=== PATIENT | female | born 1975 | race Caucasian/White ===

== ENCOUNTER 2021-03-05 02:32 | Outpatient (CLI) | payer BC, SELFPAY ==
[2021-03-05 10:03] LABS: HCT 44.8 % (36.0-46.0); HGB 15.6 g/dL (11.2-15.7); MCH 30.5 pg (27.0-33.0); MCHC 34.8 % (32.0-36.0); MCV 87.5 fL (80-95); MPV 11.4 fL (8.0-11.0); Platelet Count 240 10^3/uL (130-400); RBC 5.12 10^6/uL (3.93-5.22); RDW 12.7 % (11.7-14.6); RDW-SD 40.6 fL; WBC 6.82 10^3/uL (4.4-10.8)
[2021-03-05 10:22] LABS: Hemoglobin A1C 11.5 % (<5.7)
[2021-03-05 11:16] LABS: ALT 47 U/L (14-59); AST 24 U/L (15-37); Alkaline Phosphatase 153 U/L (46-116); Anion Gap 7.8 mmol/L (3-11); BUN 11 mg/dL (7-18); Bilirubin, Total 0.6 mg/dL (0.2-1.0); CO2 28.2 mmol/L (21.0-32.0); Calcium 9.2 mg/dL (8.5-10.1); Calculated LDL 164 mg/dL (<100); Chloride 101 mmol/L (98-107); Cholesterol 236 mg/dL (<200); Estimated GFR 59.43 (mL/min/1.73m2); Glucose 277 mg/dL (74-106); HDL Cholesterol 42 mg/dL (40-60); Potassium 4.6 mmol/L (3.5-5.1); Sodium 137 mmol/L (136-145); TSH (W/Ref FT4) 0.94 uIU/mL (0.36-3.74); Total Protein 7.3 g/dL (6.4-8.2); Triglyceride 153 mg/dL (<150)
[2021-03-08 09:24] LABS: Hepatitis C Ab w Rflx HCV PCR Negative (Negative)
[2021-03-08 09:42] LABS: HIV-1/2 Ag & Ab Screen Negative (Negative)
== END 2021-03-05 02:33 | disposition home or self-care (01) ==
LOC: LBO 02:32
PROVIDERS: PCP Nurse Practitioner Adult Health; Visit Provider Nurse Practitioner Adult Health
DX: N92.0 Excessive and frequent menstruation with regular cycle (principal); R73.03 Prediabetes; E66.01 Morbid (severe) obesity due to excess calories; Z11.4 Encounter for screening for human immunodeficiency virus [HIV]; Z11.59 Encounter for screening for other viral diseases
CPT/HCPCS: 36415; 80053; 80061; 85027; 86803; 87389; 83036; 84443

== ENCOUNTER 2021-03-05 12:02 | Outpatient (REF) | payer BC, SELFPAY ==
--- NOTE | 2021-03-05 11:00 | PAPFT_PTH ---
PATIENT: Avis King LOC: N U#:[id number] AGE/SX: 45/F ROOM: RE03/05/[address]: Dilcia Hollis APRN : 1975 BED: DIS: 03/05/2021 SPEC #: [id number] RECD: 03/05/21 16:31 STATUS: NIKHIL REGoyo #: [id number] VALERIA: 03/05/21 11:[address]: Dilcia Hollis DEPT: [facility] Cytology RECD BY: Janna Cantrell Tissues: 1 - CX/ENDOCX FOR PAP SMEARS Procedures: PAP THIN PREP/UVM Screening HPV DNA PROBE Comments: [id number]
== END 2021-03-05 12:03 | disposition home or self-care (01) ==
LOC: LBN 12:02
PROVIDERS: PCP Nurse Practitioner Adult Health; Visit Provider Nurse Practitioner Adult Health
DX: Z12.4 Encounter for screening for malignant neoplasm of cervix (principal); Z11.51 Encounter for screening for human papillomavirus (HPV)
CPT/HCPCS: 88142; 87624

== ENCOUNTER 2021-03-16 14:10 | Outpatient (REF) | payer BC, SELFPAY ==
[2021-03-18 13:16] LABS: COVID-19 RT-PCR UVMMC Result Negative (Negative)
== END 2021-03-16 14:11 | disposition home or self-care (01) ==
LOC: LBN 14:10
PROVIDERS: PCP Nurse Practitioner Adult Health
DX: Z20.822 Contact with and (suspected) exposure to COVID-19 (principal); J02.9 Acute pharyngitis, unspecified
CPT/HCPCS: U0003

== ENCOUNTER 2021-03-22 02:17 | Outpatient (CLI) | payer BC, SELFPAY ==
--- NOTE | 2021-03-22 15:02 | DI.MAMMO_ITS ---
Exam(s) MAMMO SCREENING EXAM: MAMMO SCREENING CLINICAL HISTORY: screening,Z12.39 TECHNIQUE: Mammograms were interpreted according to the usual protocol including computer analysis w [employer] CAD system, tomosynthesis and C-view imaging. COMPARISON: [facility] MAMMO KENN SCREENING BILAT-M2 from 06/16/2016 16 June 2016 from [facility] FINDINGS: The breasts are composed of scattered fibroglandular densities, Breast Density category B. No suspicious masses or suspicious microcalcifications are seen. No skin thickening or abnormal axillary lymph nodes are seen. There has been no significant change from prior exams. IMPRESSION: BI-RADS Category 1, Negative mammogram Yearly screening mammography is recommended. Breast Density - Category B, scattered fibroglandular densities. A negative radiographic report should not delay biopsy if a dominant or clinically suspicious mass is present. Up to ten percent of cancers are not identified on mammography. A negative report may reinforce clinical impression. Adenosis and dense breasts may obscure an underlying neoplasm. False positive reports average 6 to 10%. Patient will receive a letter notifying them of these results.
== END 2021-03-22 02:37 ==
PROVIDERS: PCP Nurse Practitioner Adult Health; Visit Provider Nurse Practitioner Adult Health
DX: Z12.31 Encounter for screening mammogram for malignant neoplasm of breast (principal)
CPT/HCPCS: 77063; 77067

== ENCOUNTER 2021-04-27 04:18 | Outpatient (CLI) | payer BC, SELFPAY ==
--- NOTE | 2021-04-27 11:00 | NS.NUTBLAN_ITS ---
Avis was referred to Diabetes [facility]. 46 years old, newly diagnosed with Dm 2 with A1C of 11.5% (03/05/21). Wt: 230 lbs, down from 265 lbs, 90 days ago. Goal weight 210 lbs. Avis reports that she does not take any DM meds, checks her glucose once daily. She is not interested in a continuous glucose monitor at this time. Food recall indicates that Avis has changed her diet- she consumes 30-50 g carbs daily and has increased her vegetable and protein intake. She also walks 30 minutes , 5 x weekly. She is determined to resolve her DM2. Session today focused on need to test blood sugars at least three times daily and encouraged her to liberalize her diet to include upto 80-100 g carbs daily. Reviewed with her that overly restrictive diets often are not sustainable. Encouraged her to take DM meds as prescribed. Awaiting updated A1C in May 2021. Overall, Avis is doing very well with her life style choices and I expect she will continue to lose weight if she is able to continue current meal plans and exercise. No follow up planned at this time, encouraged her to reach out if A1C > 7% at next blood draw.
== END 2021-04-27 04:19 | disposition home or self-care (01) ==
PROVIDERS: PCP Nurse Practitioner Adult Health; Visit Provider Dietitian, Registered
DX: E11.9 Type 2 diabetes mellitus without complications (principal); Z71.3 Dietary counseling and surveillance
CPT/HCPCS: 97802

== ENCOUNTER 2021-05-10 12:00 | Outpatient (REF) | payer BC, SELFPAY ==
--- NOTE | 2021-05-10 10:00 | ENDOMET_PTH ---
PATIENT: Avis King LOC: [facility] U#:[id number] AGE/SX: 46/F ROOM: RE05/10/[address]: Tamika Young DO : 1975 BED: DIS: 05/10/2021 SPEC #: [id number] RECD: 05/10/21 12:40 STATUS: NIKHIL REQ #: [id number] VALERIA: 05/10/21 10:[address]: Tamika Young DEPT: Surgical Specimen RECD BY: Janna Cantrell ENTERED: 05/10/21 12:41 SP TYPE: Endomet OTHR DR: Dilcia Hollis APRN Tissues: 1 - ENDOMETRIUM BX/CEDRIC Procedures: GROSS AND MICRO LEVEL 4 Comments: [id number]
== END 2021-05-10 12:01 | disposition home or self-care (01) ==
LOC: LBN 12:00
PROVIDERS: PCP Nurse Practitioner Adult Health; Visit Provider Obstetrics & Gynecology
DX: N84.1 Polyp of cervix uteri (principal); N85.01 Benign endometrial hyperplasia; N93.8 Other specified abnormal uterine and vaginal bleeding
CPT/HCPCS: 88305

== ENCOUNTER 2021-05-20 03:09 | Outpatient (CLI) | payer BC, SELFPAY ==
[2021-05-20 09:33] LABS: Hemoglobin A1C 6.7 % (<5.7)
[2021-05-20 09:49] LABS: ALT 34 U/L (14-59); AST 17 U/L (15-37); Albumin 4.2 g/dL (3.4-5.0); Alkaline Phosphatase 109 U/L (46-116); Anion Gap 9.3 mmol/L (3-11); BUN 17 mg/dL (7-18); Bilirubin, Total 0.6 mg/dL (0.2-1.0); CO2 26.7 mmol/L (21.0-32.0); CREATININE 1.1 mg/dL (0.55-1.02); Calcium 9.1 mg/dL (8.5-10.1); Calculated LDL 146 mg/dL (<100); Chloride 103 mmol/L (98-107); Cholesterol 214 mg/dL (<200); Estimated GFR 53.01 (mL/min/1.73m2); Glucose 121 mg/dL (74-106); HDL Cholesterol 49 mg/dL (40-60); Potassium 4.6 mmol/L (3.5-5.1); Sodium 139 mmol/L (136-145); Total Protein 7.5 g/dL (6.4-8.2); Triglyceride 97 mg/dL (<150)
[2021-05-20 10:48] LABS: COMMENT (LAB VIEW ONLY) 158.73 mg/dL; Microalb ug/mg Crea 5.9 ug/mg Cr
== END 2021-05-20 03:10 | disposition home or self-care (01) ==
LOC: LBO 03:09
PROVIDERS: PCP Nurse Practitioner Adult Health; Visit Provider Nurse Practitioner Adult Health
DX: E11.69 Type 2 diabetes mellitus with other specified complication (principal); E66.9 Obesity, unspecified
CPT/HCPCS: 36415; 80053; 80061; 82043; 82570; 83036

== ENCOUNTER 2021-08-20 01:27 | Outpatient (CLI) | payer BC, SELFPAY ==
[2021-08-20 15:19] LABS: ALT 36 U/L (14-59); AST 15 U/L (15-37); Albumin 4.4 g/dL (3.4-5.0); Alkaline Phosphatase 98 U/L (46-116); Anion Gap 12.3 mmol/L (3-11); BUN 14 mg/dL (7-18); Bilirubin, Total 0.7 mg/dL (0.2-1.0); CO2 26.7 mmol/L (21.0-32.0); CREATININE 0.9 mg/dL (0.55-1.02); Calcium 9.3 mg/dL (8.5-10.1); Calculated LDL 103 mg/dL (<100); Chloride 102 mmol/L (98-107); Cholesterol 156 mg/dL (<200); Glucose 88 mg/dL (74-106); HDL Cholesterol 41 mg/dL (40-60); Potassium 4.1 mmol/L (3.5-5.1); Sodium 141 mmol/L (136-145); Total Protein 7.8 g/dL (6.4-8.2); Triglyceride 61 mg/dL (<150)
== END 2021-08-20 01:28 | disposition home or self-care (01) ==
LOC: LBO 01:27
PROVIDERS: PCP Nurse Practitioner Adult Health; Visit Provider Nurse Practitioner Adult Health
DX: E78.5 Hyperlipidemia, unspecified (principal); E11.69 Type 2 diabetes mellitus with other specified complication; E66.9 Obesity, unspecified
CPT/HCPCS: 36415; 80053; 80061; 83036

== ENCOUNTER 2022-03-11 02:56 | Outpatient (CLI) | payer BC, SELFPAY ==
--- OUTSIDE RECORDS SUMMARY | 2022-03-11 02:57 | XMS_ITS | Encounter Summary ---
:1975 Author Organization [facility] Address [address] [place] [address] Care Team Providers Name Role Phone Unavailable Primary Care Provider Unavailable Encounter Details Date Type Department Care Team Description 08/12/2008 Before PRISM [facility] - Vicente Hart MD Converted Visit Maple conversion [address] ([place]le) [address] [place] [phone] (Wo rk) Social History Tobacco Use Types Packs/Day Years Used Date Never Assessed Sex Assigned at Date Recorded Not on file documented as of this encounter Plan of Treatment Not on filedocumented as of this encounter Procedures Procedure Name Priority Date/Time Associated Diagnosis Comme nts CYTOPATHOLOGY Routine 08/12/2008 0:00 EST Results for this procedure are i n the results section . documented in this encounter Results CYTOPATHOLOGY (08/12/2008 0:00 EST) Pathology Report: CYTOPATHOLOGY REPORT ? BRICE ALL EN ? LAB Reports generated via G2Link interface contain original data; ? however they are lacking the format of the original report. ? Caution should be taken when reading/interpreting unformatted reports. ? Name: ? KWABENA RANDOLPH ? Accession #: ? [id number] ? : ? 1975 (Age: 33) ??F ?Collect Date: ? 08/12/2008 ? Location: ? [facility] ? Receive Date: ? 08/14/2008 ? Provider: ?ALONSO MART MD ? Copy to: ? Specimen/Source: ? Pap Test, Cervix/Endocervix, ThinPrep Imaging System ? with manual evaluation ? Last Menstrual Period: ? 11/30/08 ? Hormonal/Contraceptive Statu s: ? Tubal ligation: 2000 ? Other: ? HPVA - HPV testing requested if ASC-US on the current ThinPrep Pap test. ? SPECIMEN ADEQUACY ? Satisfactory for Eval uation ? - transformation zone compon ent present ? GENERAL CATEGORIZATION ? Negative for Intraepi thelial Lesion or Malignancy ? Document reviewed and electr onically signed by: ? John Nii Mariano , MD ? Report Date: ??12/09/ 2008 10:10 ? End of Report ? Specimen Performing Organization Address City/State/ZIP Code Phon e Number [facility] [address] [place] [address] SERVICES [facility] [address] [place] [address] documented in this encounter Visit Diagnoses Not on filedocumented in this encounter
--- OUTSIDE RECORDS SUMMARY | 2022-03-11 02:57 | XMS_ITS | Clinical Summary ---
:1975 Author Organization [facility] Address [address] [place] [address] Care Team Providers Name Role Phone Olivier Hart MD Primary Care Provider Social History Tobacco Use Types Packs/Day Years Used Date Never Assessed Sex Assigned at Date Recorded Not on file Plan of Treatment Health Maintenance Due Date Last Done Comments COVID-19 Vaccine (1) 1978 Hepatitis C Screen Completed 03/05/2021 Insurance Payer Benefit Plan / Subscriber ID Effective Phone Address T ype Group Dates BS [facility] [id number] 2018-[facility] [phone] [address] [employer] [address] [place] [address] Care Teams Shrimping Boat Captain Relationship Specialty Start Date End Date Olivier Hart MD PCP - General 07/15/15
--- OUTSIDE RECORDS SUMMARY | 2022-03-11 02:57 | XMS_ITS | Encounter Summary ---
:[address] [facility] Address [address] [place] [address] Care Team Providers Name Role Phone Olivier Hart MD Primary Care Provider Encounter Details Date Type Department Care Team Description 05/10/2021 Lab Requisition [facility] Tamika Young Encounter for other Pathology & [address] [place] [address] general examination Laboratory Medicine [facility] [phone] [address] [facility] [phone] [place] [address] (Work) [phone] Social History Tobacco Use Types Packs/Day Years Used Date Never Assessed Sex Assigned at Date Recorded Not on file documented as of this encounter Plan of Treatment Not on filedocumented as of this encounter Procedures Procedure Name Priority Date/Time Associated Diagnosis Comme nts SURGICAL PATHOLOGY Today 05/10/2021 10:00 Encounter for othe r Results for this EDT general examination procedur e are in the results section. documented in this encounter Results SURGICAL PATHOLOGY (05/10/2021 10:00 EDT) Note to Patient The following [facility] pathology results CENTER have been interpreted LABORATORY by your pathologist SERVICES and may be available to you before your health provider has had the opportunity to review them. Please allow time for your provider to receive these results and explore management options, if applicable. Final Diagnosis A. ENDOMETRIUM, BIOPSY: [facility] - Proliferative endometrium with focal disorder. CENTER - Benign endocervical polyp also present. LABORATORY SERVICES Attestation There was significant [facility] Electr onically resident/fellow CENTER signed by J Luis yuan, involvement in the LABORATORY James Elam MD on diagnostic evaluation SERVICES 05/13/20 21 at 0950 of this case. By the signature below, the attending physician certifies that they have personally conducted a gross and/or microscopic examination of the described specimens and rendered or confirmed the above diagnosis. Clinical History Abnormal uterine [facility] LABORATORY SERVICES Gross Description A. [facility] II8 Received in formalin lab elled with proper patient identification (initials S, H) and endometrium bx is an aggregate of pink-red soft tissue fragments admixed with ellis of a mucous (1.7 x 1.3 x 0.7 CENTER cm). The specimen is submitted entirely in A1 and A2. LABORATORY SERVICES VANNA TORIBIO([facility]) 05/10/2021 15:35 Resident/Fellow: Lou Cassidy MD [facility] SERVICES Performing Lab [facility] SERVICES Scanned Images [facility] SERVICES Specimen Tissue - Entire endometrium (body struct ure) Performing Organization Address City/State/ZIP Code Phon e Number [facility] [address] [place] [address] SERVICES documented in this encounter Visit Diagnoses Diagnosis Encounter for other general examination documented in this encounter Care Teams Photoresist Printer Relationship Specialty Start Date End Date Olivier Hart MD PCP - General 07/15/15 documented as of this encounter
--- OUTSIDE RECORDS SUMMARY | 2022-03-11 02:57 | XMS_ITS | Encounter Summary ---
:1975 Author Organization [facility] Address [address] [place] [address] Care Team Providers Name Role Phone Unavailable Primary Care Provider Unavailable Encounter Details Date Type Department Care Team Description 07/18/2013 Results Only [facility] Arabella Haley NP Laboratory Services - [address] [facility],[address] [address] [place] [address] [phone] Social History Tobacco Use Types Packs/Day Years Used Date Never Assessed Sex Assigned at Date Recorded Not on file documented as of this encounter Plan of Treatment Not on filedocumented as of this encounter Procedures Procedure Name Priority Date/Time Associated Diagnosis Comme nts PAP TEST- RESULT Routine 07/18/2013 0:00 EST Resu lts for this ONLY procedure are i n the results section. documented in this encounter Results PAP TEST- RESULT ONLY (07/18/2013 0:00 EST) Pathology Report: CYTOPATHOLOGY REPORT [facility] Reports generated via electronic interface contain jamin ginal data; however they are lacking the format of the original re port. Caution should be taken when reading/interpreting unfo rmatted reports. Name: ? KWABENA RANDOLPH ? Accession #: ? [id number] ? : ? 1975 (Age: 38) ??F ?Collect Da te: ? 07/18/2013 ? Location: ? [facility] ? Receive Date: ? 013 ? Provider: SHAYLA HALEY TELEPHONE STERILIZER Copy to: ? Final Report SPECIMEN ADEQUACY ? Satisfactory for Evaluation - transformation zone component present GENERAL CATEGORIZATION ? Negative for Intraepithelial Lesion or Malignan cy ?? Last Menstrual Period: 07/06/13 Hormonal/Contraceptive status: Tubal ligation: Bilater al Other: Additional clinical information: No abnormal pa ps Specimen/Source: ??Pap Test, Cervix/Endocervix, ThinPr ep Imaging System with manual evaluation Document reviewed and electronically signed by: ? Asiya Shane, TIGRE(ASCP) ? Report ??Date: 07/26/2013 14:08 HPV with Pap Test ? Date Ordered: ? 07/26/2013 ? Status: ?? Signed Out ?Date Complete: ? 07/30/2013 ? By: ??S ystem Interface ? Date Reported: ? 07/30/2013 ? Interpretation RESULT: Negative for HPV. No E6 or E7 mRNA is detected from HPV types 16,18,31,3 3,35, 39,45,51,52,56,58,59,66, and 68 by sign hanger media louise amplification. Comments Document reviewed and electronically signed by: ? System Interface ? Report date: 07/30/2013 By the signature above, the attending physician certif ies that he/she has personally conducted a gross and/or microscopic examin ation of the described specimens and rendered or confirmed the above diagnosi s. End of Report Specimen Performing Organization Address City/State/ZIP Code Phon e Number [facility] [address] [place] [address] SERVICES [facility] [address] [place] [address] documented in this encounter Visit Diagnoses Not on filedocumented in this encounter
--- OUTSIDE RECORDS SUMMARY | 2022-03-11 02:57 | XMS_ITS | Encounter Summary ---
:1975 Author Organization [facility] Address [address] [place] [address] Care Team Providers Name Role Phone Unavailable Primary Care Provider Unavailable Encounter Details Date Type Department Care Team Description 07/30/1999 Hospital Encounter [facility] - Poncho Diop MD [address] [phone] Other Unknown, Provider, [address] [place] [address] Social History Tobacco Use Types Packs/Day Years Used Date Never Assessed Sex Assigned at Date Recorded Not on file documented as of this encounter Discharge Disposition Disposition Code Departure Means Destination Auto Discharge documented in this encounter Plan of Treatment Not on filedocumented as of this encounter Visit Diagnoses Not on filedocumented in this encounter
--- OUTSIDE RECORDS SUMMARY | 2022-03-11 02:57 | XMS_ITS | Encounter Summary ---
:[address] [facility] Address [address] [place] [address] Care Team Providers Name Role Phone Olivier Hart MD Primary Care Provider Encounter Details Date Type Department Care Team Description 03/05/2021 Lab Requisition [facility] Outr Resulting Lab, Pathology & Laboratory Provider [facility] [address] [place] [address] Social History Tobacco Use Types Packs/Day Years Used Date Never Assessed Sex Assigned at Date Recorded Not on file documented as of this encounter Plan of Treatment Not on filedocumented as of this encounter Procedures Procedure Name Priority Date/Time Associated Diagnosis Comme nts HEPATITIS C AB W Routine 03/05/2021 9:47 EDT Resu lts for this REFLEX TO HCV RNA procedure are in BY PCR the results section. documented in this encounter Results HEPATITIS C AB W REFLEX TO HCV RNA BY PCR (03/05/2021 9:47 EDT) Pathologist Sig nature Hep C Antibody Negative Negative [facility] SERVICES Specimen Blood - Venous blood (substance) Performing Organization Address City/State/ZIP Code Phon e Number [facility] [address] [place] [address] SERVICES documented in this encounter Visit Diagnoses Not on filedocumented in this encounter Care Teams Air Pollution Control Engineer Relationship Specialty Start Date End Date Olivier Hart MD PCP - General 07/15/15 documented as of this encounter
--- OUTSIDE RECORDS SUMMARY | 2022-03-11 02:57 | XMS_ITS | Encounter Summary ---
:1975 Author Organization [facility] Address [address] [place] [address] Care Team Providers Name Role Phone Olivier Hart MD Primary Care Provider Encounter Details Date Type Department Care Team Description 03/17/2021 Lab Requisition [facility] Outr Resulting Lab, Pathology & Laboratory Provider [facility] [address] [place] [address] Social History Tobacco Use Types Packs/Day Years Used Date Never Assessed Sex Assigned at Date Recorded Not on file documented as of this encounter Plan of Treatment Not on filedocumented as of this encounter Procedures Procedure Name Priority Date/Time Associated Diagnosis Comme nts [facility] Today 03/16/2021 13:36 LAB PCR EDT COVID-19 TESTING Routine 03/16/2021 13:36 Results for this EDT procedure are i n the results section. documented in this encounter Results COVID-19 TEST [facility] PCR (03/16/2021 13:36 EDT) Specimen Swab - Entire nasopharynx (body structur e) Performing Organization Address City/State/ZIP Code Phon e Number [facility] [address] [place] [address] SERVICES COVID-19 TESTING (03/16/2021 13:36 EDT) COVID-19 rt-PCR Negative Negative [facility] Result Comment: CENTER LABORATORY This test has not been FDA c leared or approved. This test has been authorized by FDA under an EUA for use by authorized laboratories. This test has been authorized only for detection of nucleic acid fro SERVICES m 2019-nCoV, not for any oth er viruses or pathogens. This test is only authorized for the duration of the declaration that circumstances exist justifying the authorization of emergency use of in vitro d iagnostic tests for detectio n and/or diagnosis of 2019-nCoV under section 564(b)(1) of Act, 21 U.S.C ?? 360bbb-3(b) (1), unless the authorization is terminated or revoked sooner. Negative results do not prec lude 2019-nCoV infection and should not be used as the sole basis for treatment or other patient management decisions. Negative results must be combined with clinical observa tions, patient history, and epidemiological informatio n. Testing was performed using the rm SARS-CoV-2 assay ([employer] on the Rm 6800 System Performing Lab Rm 6800 [facility] Lab [facility] SERVICES Specimen Swab Performing Organization Address City/State/ZIP Code Phon e Number [facility] [address] [place] [address] SERVICES documented in this encounter Visit Diagnoses Not on filedocumented in this encounter Care Teams Rural Service Engineer Relationship Specialty Start Date End Date Olivier Hart MD PCP - General 07/15/15 documented as of this encounter
--- OUTSIDE RECORDS SUMMARY | 2022-03-11 02:57 | XMS_ITS | Encounter Summary ---
:1975 Author Organization [facility] Address [address] [place] [address] Care Team Providers Name Role Phone Unavailable Primary Care Provider Unavailable Encounter Details Date Type Department Care Team Description 02/21/2000 Results Only [facility] - Lorene Garcia MD conversion [address] [facility] [address] [place] [phone] (Wo rk) Social History Tobacco Use Types Packs/Day Years Used Date Never Assessed Sex Assigned at Date Recorded Not on file documented as of this encounter Plan of Treatment Not on filedocumented as of this encounter Procedures Procedure Name Priority Date/Time Associated Diagnosis Comme nts CYTOPATHOLOGY Routine 02/21/2000 0:00 EDT Results for this procedure are i n the results section . documented in this encounter Results CYTOPATHOLOGY (02/21/2000 0:00 EDT) Pathology Report: CYTOPATHOLOGY REPORT [facility] Reports generated via electronic interface contain jamin ginal data; however they are lacking the format of the original re port. Caution should be taken when reading/interpreting unfo rmatted reports. Name: ? KWABENA RANDOLPH ? Accession #: ? [id number] : ? 1975 (Age: 24) ??F ?Collect Date: ? 02/09 Location: ? [facility] ? Receive Date : ? 02/23/2000 Provider: ?LORENE MCCORD MD Copy to: ? Specimen/Source: ?Conventional Pap Test, Cer vix/Endocervix Last Menstrual Period: ? 04/04/00 Menstrual/ Status: ? Post ? SPECIMEN ADEQUACY ? Satisfactory for evaluation. GENERAL CATEGORIZATION ? Within Normal Limits ? Document reviewed and electronically signed by: ? Ricarda Maradiaga, SCT(ASCP) ? Report Date: ??02/23/2000 11:21 End of Report Specimen Performing Organization Address City/State/ZIP Code Phon e Number [facility] [address] [place] [address] SERVICES [facility] [address] [place] [address] documented in this encounter Visit Diagnoses Not on filedocumented in this encounter
--- OUTSIDE RECORDS SUMMARY | 2022-03-11 02:57 | XMS_ITS | Encounter Summary ---
:1975 Author Organization [facility] Address [address] [place] [address] Care Team Providers Name Role Phone Olivier Hart MD Primary Care Provider Encounter Details Date Type Department Care Team Description 03/08/2021 Lab Requisition [facility] Dilcia Hollis En counter for screening for malignant neoplasm of cervix; Pathology & L, DIGITAL PRINT OPERATOR Encounter for screening for human papill omavirus (HPV) Laboratory Medicine [address] [place] [address] [phone] Social History Tobacco Use Types Packs/Day Years Used Date Never Assessed Sex Assigned at Date Recorded Not on file documented as of this encounter Plan of Treatment Not on filedocumented as of this encounter Procedures Procedure Name Priority Date/Time Associated Diagnosis Comme nts PAP TEST Today 03/05/2021 11:00 Encounter for Results fo r this EDT screening for procedure are in malignant neoplasm of the re sults cervix section. Encounter for screening for human papillomavirus (HPV) HUMAN PAPILLOMAVIRUS Today 03/05/2021 11:00 Encounter for Re sults for this (HPV) DETECTION-HIGH EDT screening for proced ure are in RISK TYPES malignant neoplasm of the re sults cervix section. Encounter for screening for human papillomavirus (HPV) documented in this encounter Results HUMAN PAPILLOMAVIRUS (HPV) DETECTION-HIGH RISK TYPES (03/05/2021 11:00 EDT) Human Papillomavirus NegativeComment: No Negative [facility] (HPV) Detection-High E6 or E7 mRNA is CENTER LABORATOR Y Types detected from HPV SERVICES types 16,18,31,33,35,39,45 ,51,52,56,58,59,66, and 68 by research librarian mediated amplification. Specimen Pap Test - Cervix and/or Endocervix Performing Organization Address City/State/ZIP Code Phon e Number [facility] [address] [place] [address] SERVICES PAP TEST (03/05/2021 11:00 EDT) Specimens A. Cervix and/or [facility] Endocervix , ThinPrep CENTER Imaging System with LABORATORY Manual Evaluation SERVICES Specimen Adequacy Satisfactory for [facility] Evaluation - CENTER transformation zone LABORATORY component present SERVICES General Negative for [facility] intraepithelial CENTER lesion or malignancy LABORATORY SERVICES Attestation . [facility] Electronically CENTER signed by SERGIO Shane CT(ASCP) on SERVICES 03/18/2021 at 154 0 Clinical History See below [facility] SERVICES HPV The result for the Human Pap illomavirus (HPV) Detection-High Risk Types is Negative. No E6 or E7 mRNA is detected from HPV types 16,18,31,33,35,39,45,51,52,56,58,59,66, and 68 by research librarian mediated [facility] amplification.Testing was pe rformed on specimen [id number] and was resulted on 03/18/2021 1537 EDT by JUAN CARLOS, LAB INSTRUMENT RESULTS IN [facility] SERVICES Performing Lab [facility] SERVICES Scanned Images [facility] SERVICES Specimen Pap Test - Cervix and/or Endocervix Performing Organization Address City/State/ZIP Code Phon e Number [facility] [address] [place] [address] SERVICES documented in this encounter Visit Diagnoses Diagnosis Encounter for screening for malignant ne oplasm of cervix Screening for malignant neoplasm of the cervix Encounter for screening for human papill omavirus (HPV) Special screening examination for human papillomavirus (HPV) documented in this encounter Care Teams Form Tamper Relationship Specialty Start Date End Date Olivier Hart MD PCP - General 07/15/15 documented as of this encounter
== END 2022-03-11 02:57 | disposition home or self-care (01) ==
LOC: LBO 02:56
PROVIDERS: PCP Nurse Practitioner Adult Health; Visit Provider Nurse Practitioner Adult Health

== ENCOUNTER → 2022-04-08 00:43 | Outpatient (CLI) | payer BC, SELFPAY ==
--- NOTE | 2022-04-08 08:30 | DI.MAMMO_ITS ---
Exam(s) MAMMO SCREENING EXAM: MAMMO SCREENING CLINICAL HISTORY: screening, Z12.39 TECHNIQUE: Bilateral full field digital CC and MLO mammographic images were obtained with 3D tomosyn thesis and utilizing computer aided detection (CAD). COMPARISON: Available for comparison. FINDINGS: Masses/Architectural Distortion: None seen. Microcalcifications: No suspicious pleomorphic-type are seen. Skin Thickening/Nipple Retraction: None. IMPRESSION: 1. No significant interval change with no specific features of malignancy noted. 2. Unless there is more urgent need, screening mammography is recommended, as per [place] [employer] guidelines. BI-RADS Category 1 - Negative Breast Density - Category B - Scattered areas of fibroglandular density Breast density category C or D implies that the patient has dense breast tissue. Dense breast tissue is very common and is not abnormal but dense breast tissue can make it harder to find cancer on a ma mmogram. Also, dense breast tissue may increase their breast cancer risk. This information about the result of the mammogram report was provided to the patient to raise their awareness. Use this report when you speak with the patient about their risks for breast cancer, which includes their family hist ory. At that time, you may recommend for more screening tests (Ultrasound or MRI) as they might be us eful based on their risk. A negative radiographic report should not delay biopsy if a dominant or clinically suspicious mass is present. Up to ten percent of cancers are not identified on mammography. A negative report may reinforce clinical impression. Adenosis and dense breasts may obscure an underlying neoplasm. False positive reports average 6 to 10%. Patient will receive a letter notifying them of these results.
== END ==
PROVIDERS: PCP Nurse Practitioner Adult Health; Visit Provider Nurse Practitioner Adult Health
DX: Z12.31 Encounter for screening mammogram for malignant neoplasm of breast (principal); R92.8 Other abnormal and inconclusive findings on diagnostic imaging of breast
CPT/HCPCS: 77063; 77067

== ENCOUNTER 2022-05-24 11:59 | Outpatient (REF) | payer BC, SELFPAY ==
--- NOTE | 2022-05-24 11:20 | ENDOMET_PTH ---
PATIENT: Avis King LOC: [facility] U#:[id number] AGE/SX: 47/F ROOM: RE05/24/[address]: Tamika Young DO : 1975 BED: DIS: 05/24/2022 SPEC #: [id number] RECD: 05/24/22 13:06 STATUS: NIKHIL RE #: [id number] VALERIA: 05/24/22 11:[address]: Tamika Young DEPT: Surgical Specimen RECD BY: Janna Cantrell ENTERED: 05/24/22 13:07 SP TYPE: Endomet OTHR DR: Dilcia Hollis APRN Tissues: 1 - ENDOMETRIUM BX/CEDRIC Procedures: GROSS AND MICRO LEVEL 4 Comments: [id number]
== END 2022-05-24 12:00 | disposition home or self-care (01) ==
LOC: LBN 11:59
PROVIDERS: PCP Nurse Practitioner Adult Health; Visit Provider Obstetrics & Gynecology
DX: N93.9 Abnormal uterine and vaginal bleeding, unspecified (principal)
CPT/HCPCS: 88305

== ENCOUNTER 2022-06-20 03:03 | Outpatient (CLI) | payer BC, SELFPAY ==
[2022-06-20 12:23] LABS: Abs Immature Grans 0.02 10^3/uL (0.0-0.06); Absolute Basophil Count 0.05 10^3/uL (0.0-0.2); Absolute Eosinophil Count 0.16 10^3/uL (0.0-0.7); Absolute Lymphocyte Count 2.63 10^3/uL (1.2-3.4); Absolute Neutrophil Count 4.72 10^3/uL (1.2-6.7); Basophils % 0.6; HCT 45.8 % (36.0-46.0); Immature Grans % 0.2; Lymphocytes % 32.5; MCH 30.8 pg (27.0-33.0); MCHC 34.9 % (32.0-36.0); MCV 88 fL (80-95); MPV 10.8 fL (8.0-11.0); Monocytes % 6.2; Neutrophils % 58.5; Platelet Count 247 10^3/uL (130-400); RDW 13.1 % (11.7-14.6); RDW-SD 42.6 fL; WBC 8.08 10^3/uL (4.4-10.8)
[2022-06-20 12:59] LABS: Anion Gap 7.5 mmol/L (3-11); CO2 27.5 mmol/L (21.0-32.0); Chloride 103 mmol/L (98-107); Glucose 162 mg/dL (74-106); Sodium 138 mmol/L (136-145)
== END 2022-06-20 03:04 | disposition home or self-care (01) ==
LOC: LBO 03:03
PROVIDERS: PCP Nurse Practitioner Adult Health; Visit Provider Obstetrics & Gynecology
DX: N93.8 Other specified abnormal uterine and vaginal bleeding (principal); D25.9 Leiomyoma of uterus, unspecified; Z01.818 Encounter for other preprocedural examination; Z01.812 Encounter for preprocedural laboratory examination; E11.69 Type 2 diabetes mellitus with other specified complication; E66.01 Morbid (severe) obesity due to excess calories
CPT/HCPCS: 36415; 80051; 82947; 86850; 86900; 86901; 85025

== ENCOUNTER 2022-06-22 06:08 | Day surgery (SDC) | payer BC, SELFPAY ==
[2022-06-22] VITALS (8 sets, daily range): BP systolic 117–131; BP diastolic 67–97; PULSE 67–78; RESP 12–18; TEMP 36.4–36.6; O2SAT 97–100; BMI 35.7
[2022-06-22] MEDS: Lactated Ringers 1,000 ML 125 ML IV (06:41)
--- NOTE | 2022-06-22 07:03 | W.ANESPRE ---
General Info Date of Service Date Performed: 06/22/22 Height: 5 ft 6 in Weight: 100.4 kg Body Mass Index (BMI): 35.7 Surgical Procedure: Operation Date: 06/22/22 07:40 Proposed Procedure Side Surgeon p Dilation & Curettage with Hysteroscopy Tamika Young DO Meds Allergies and Home Medications Allergies Allergy/AdvReac Type Severity Reaction Status Date / Time No Known Allergies Allergy Verified 06/22/22 06:02 Home Medication Medication Instructions Recorded blood sugar diagnostic (Blood #100 ea 03/05/21 Glucose Test strips) blood-glucose meter #1 ea 03/05/21 lancets #100 ea 03/05/21 loratadine 10 mg tablet (Allergy 10 mg PO DAILY PRN allergic 03/11/22 Relief (loratadine)) symptoms #90 tabs norethindrone acetate 5 mg tablet 5 mg PO BID #120 tabs 04/13/22 (Aygestin) atorvastatin 10 mg tablet See Rx Instructions .Route 06/01/22 .COMPLEX #90 tabs Current Visit Medications: Current Medications Generic Name Dose Route Start Last Admin Trade Name Bam PRN Reason Stop Dose Admin Ringer's Solution 1,000 mls @ 125 mls/hr 06/22/22 06:00 06/22/22 06:41 IV 07/21/22 23:59 125 mls/hr INFUSION JODIE Administration IV Miscellaneous Supplies 1 each 06/22/22 06:00 Iv Access IV 07/21/22 23:59 DIRECTED JODIE Sodium Chloride 0 ml 06/22/22 06:00 Normal Saline Flush 10 Ml Syr IV 07/21/22 23:59 PRN PRN Sodium Chloride 0 ml 06/22/22 06:00 Normal Saline 10 Ml Vial IJ 07/21/22 23:59 DIRECTED PRN Sterile Water 0 ml 06/22/22 06:00 Water,Injection,Sterile 10 Ml Vial IJ 07/21/22 23:59 DIRECTED PRN PFSH Active Problems Active Problems: Problem Status Onset Code Preoperative exam for gynecologic surgery Z01.818 Hyperlipidemia ~05/2021 E78.5 Abnormal uterine bleeding ~04/2021 N93.9 Diabetes mellitus type 2 in obese ~03/05/21 E11.69, E66.9 Morbid obesity E66.01 Medical History Medical History Fibroid, uterine (~04/2021) Menorrhagia (~03/2021) Perimenopausal; pelvic U/S 03/2021-->fibroid Prediabetes A1C 6.1% 2015 Surgical History Surgical History H/O tubal ligation (~1999) Tobacco Smoking/Tobacco Use Status: Never Passive smoking exposure: No Second hand exposure: No Alcohol Alcohol Intake: current Alcohol intake frequency: holidays/special occasions only Substance Use Substance use: Never Substance use type: does not use Vital Signs and Lab Results Vital Signs Most Recent Vital Signs in EMR: Most Recent Vital Signs Temp Pulse Resp BP Pulse Ox 36.6 C 78 18 131/88 97 06/22/22 06:15 06/22/22 06:15 06/22/22 06:15 06/22/22 06:15 06/22/22 06:15 Point of Care Results Point of Care Results: POC- Test(urine) Negative 06/22/22 06:36 Lab Results Blood Type / Crossmatch: Patient ABO/Rh O Positive 06/20/22 Antibody Screen NEGATIVE 06/20/22 Complete Blood Count: White Blood Count 8.08 10^3/uL (4.4-10.8) 06/20/22 12:11 Red Blood Count 5.20 10^6/uL (3.93-5.22) 06/20/22 12:11 Hemoglobin 16.0 g/dL (11.2-15.7) H 06/20/22 12:11 Hematocrit 45.8 % (36.0-46.0) 06/20/22 12:11 Platelet Count 247 10^3/uL (130-400) 06/20/22 12:11 Complete Metabolic Panel: Sodium 138 mmol/L (136-145) 06/20/22 12:11 Potassium 4.0 mmol/L (3.5-5.1) 06/20/22 12:11 Chloride 103 mmol/L (98-107) 06/20/22 12:11 Carbon Dioxide 27.5 mmol/L (21.0-32.0) 06/20/22 12:11 Glucose 162 mg/dL (74-106) H 06/20/22 12:11 Liver Function Panel: No Data to Display Coagulation Panel: No Data to Display Cardiac Panel: No Data to Display Arterial Blood Gas: No Data to Display Venous Blood Gas: No Data to Display Pancreas Panel: No Data to Display Thyroid Panel: No Data to Display Infectious Disease: No Data to Display Blood Cultures: No Data to Display Toxicology Panel: No Data to Display Panel: No Data to Display Anesthesia Assessment and Plan Anesthesia History Personal History: No History of Anesthesia Complications Family History: No Family History of Anesthesia Complications Exercise Tolerance Exercise Tolerance: Metabolic Equivalents>4 Pertinent Negatives Pertinent Negatives: No Symptoms of GERD, No Major Cardiovascular Symptoms or Complaints and No Major Pulmonary Symptoms or Complaints Cardiac & Pulmonary Exam Cardiac Exam: Normal S1/S2 Heart Sounds Pulmonary Exam: Clear Bilateral Breath Sounds Implantable Cardiac Device Does patient have a Pacemaker or an ICD?: No Airway Exam Known Difficult Airway: No Mallampati Class: 2 Mouth Opening: Normal (> 3cm) Thyromental Distance: Greater than 3 cm Neck Range of Motion: Full ROM Neck Circumference: Normal Teeth Condition: Normal Dentition ASA Classification ASA Score: ASA 2 Emergency Case?: No NPO Status NPO Status: NPO Clears >2 hours, Solids >8 hours Status Status: Negative HCG Anesthesia Plan Resuscitation Status: Full Code Anesthesia Technique: General Anesthesia Airway Planned: LMA Monitors Used: Standard Monitors
--- NOTE | 2022-06-22 07:56 | ENDO_PTH ---
PATIENT: Avis King LOC: [facility] U#:[id number] AGE/SX: 47/F ROOM: RE06/22/[address]: Tamika Young DO : 1975 BED: DIS: 06/22/2022 SPEC #: [id number] RECD: 06/22/22 12:23 STATUS: NIKHIL RE #: [id number] VALERIA: 06/22/22 07:[address]: Tamika Young DEPT: Surgical Specimen RECD BY: Janna Cantrell ENTERED: 06/22/22 12:24 SP TYPE: Endo OTHR DR: Dilcia Hollis APRN Tissues: 1 - ENDOCERVICAL BX/CURRETTE 2 - ENDOCERVICAL BX/CURRETTE 3 - ENDOMETRIUM BX/CURRETTE 4 - ENDOMETRIUM BX/CURRETTE Procedures: GROSS AND MICRO LEVEL 4 Comments: [id number]
[2022-06-22] MEDS: Silver Nitrate Stick 1 EACH (08:07)
--- NOTE | 2022-06-22 08:24 | W.PM.OP ---
Date of service: 06/22/22 Time of Service: 08:24 Operative Note Operative Note DATE OF PROCEDURE: 06/22/22 PRE-OP DIAGNOSIS: Abnormal uterine bleeding, failed endometrial biopsy POST-OP DIAGNOSIS: same Endocervical polyp. Endometrial polyp PROCEDURE: Hysteroscopy with dilation and curettage, endocervical polypectomy. Endometrial polypectomy. SURGEON: Tamika Young ANESTHESIA TYPE: General LMA/ETT Refer to Anesthesia Record ESTIMATED BLOOD LOSS: 10 PATHOLOGY: other (1. Endocervical polyp 2. Endocervical curetting 3. Endometrial polyp 4. Endometrial curetting) Indications: Persistent, ongoing abnormal uterine bleeding Findings: Uterus that is midline and mobile. Endocervical polyp, removed. Endometrial polyp, removed. Otherwise smooth, regular endocervical and endometrial lining Procedure Description: Patient was taken the operating suite with an IV running after full informed consent was obtained. She was placed in dorsal supine position and general anesthesia administered via LMA. She was then placed in the modified dorsal lithotomy position in [facility] stirrups and prepped and draped in the usual sterile fashion. After timeout was held, speculum inserted into the vaginal vault and the cervical os identified. Single-tooth tenaculum used to grasp the anterior lip of the cervix. There is noted to be an endocervical polyp which was removed with a polyp forcep and sent for pathology. At this point cervical os was dilated to the point that a 5 mm hysteroscope could be passed with ease. With instillation of normal saline and a total deficit of 15 mL, the endometrial cavity was inspected. There was noted to be a mobile endometrial polyp and the remainder of the endometrial cavity was smooth and regular. Hysteroscope portion of the procedure was then terminated. At this point a polyp forcep was used to remove the endometrial polyp from the endometrial canal and lining. And sharp curettage had been previously performed from the endocervix, followed by the endometrium and a fractional procedure. At this point tenaculum was removed. The right tenaculum site was not hemostatic which was cauterized with silver nitrate to achieve hemostasis. At this point the speculum was removed and the patient was returned to the dorsal supine position. She woke from anesthesia with ease and was taken to recovery room in stable condition. EBL: 10 mL Complications: None apparent Findings: Smooth regular endometrial lining. Endocervical polyp. Endometrial polyp. Pathology: 1. Endocervical polyp 2. Endocervical curetting 3. Endometrial polyp 4. Endometrial curetting Fluid deficit: 15 mL normal saline
--- NOTE | 2022-06-22 09:58 | W.ANESPOSTOP ---
Postoperative Evaluation Date, Time and Location Date Performed: 06/22/22 Time Performed: 09:52 Patient Location: Day Surgery Unit Vital Signs Most Recent Imported Vital Signs: Most Recent Vital Signs Temp Pulse Resp BP Pulse Ox 36.4 C L 67 18 131/85 99 06/22/22 09:25 06/22/22 09:25 06/22/22 09:25 06/22/22 09:25 06/22/22 09:25 Pain Score Most Recent Pain Score: Most Recent Pain Score Pain Level 0 06/22/22 09:25 Assessment Mental Status: Awake (Alert & Oriented to Patient Baseline) Airway and Respiratory Function: Patent airway with normal (patient baseline) respiratory exam Cardiovascular Function: Hemodynamically Stable Hydration Status: Adequately Hydrated Nausea & Vomiting: No Nausea or Vomiting Pain: Pt. Denies Any Pain Peripheral Nerve Block: Patient did not receive a nerve block
== END 2022-06-22 10:25 | disposition home or self-care (01) ==
PROVIDERS: PCP Nurse Practitioner Adult Health; Visit Provider Obstetrics & Gynecology
PROC: 0UDB8ZZ Extraction of Endometrium, Via Natural or Artificial Opening Endoscopic (ICD-10-PCS; CPT 58558; principal; 2022-06-22 07:30)
DX: N84.0 Polyp of corpus uteri (principal); N93.9 Abnormal uterine and vaginal bleeding, unspecified; N84.1 Polyp of cervix uteri
CPT/HCPCS: 58558; 81025; 88305; J1100; J1885; J2250; J2405; J3010

== ENCOUNTER 2022-07-01 09:09 | Outpatient (CLI) | payer BC, SELFPAY ==
[2022-07-01 14:08] LABS: HCT 38.4 % (36.0-46.0); HGB 13.2 g/dL (11.2-15.7); MCH 30.9 pg (27.0-33.0); MCHC 34.4 % (32.0-36.0); MCV 90 fL (80-95); MPV 10.9 fL (8.0-11.0); Platelet Count 266 10^3/uL (130-400); RBC 4.27 10^6/uL (3.93-5.22); WBC 10.82 10^3/uL (4.4-10.8)
== END 2022-07-01 09:10 | disposition home or self-care (01) ==
LOC: LBO 09:10
PROVIDERS: PCP Nurse Practitioner Adult Health; Visit Provider Obstetrics & Gynecology
DX: N93.9 Abnormal uterine and vaginal bleeding, unspecified (principal)
CPT/HCPCS: 36415; 85027

== ENCOUNTER 2022-07-11 03:06 | Outpatient (CLI) | payer BC, SELFPAY ==
[2022-07-11 09:26] LABS: Abs Immature Grans 0.03 10^3/uL (0.0-0.06); Absolute Basophil Count 0.07 10^3/uL (0.0-0.2); Absolute Eosinophil Count 0.19 10^3/uL (0.0-0.7); Absolute Monocyte Count 0.56 10^3/uL (0.1-0.8); Absolute Neutrophil Count 5.19 10^3/uL (1.2-6.7); Basophils % 0.8; Eosinophils % 2.2; HCT 36.4 % (36.0-46.0); HGB 12.1 g/dL (11.2-15.7); Immature Grans % 0.4; Lymphocytes % 29.3; MCH 30.6 pg (27.0-33.0); MCHC 33.2 % (32.0-36.0); MCV 92 fL (80-95); MPV 10.5 fL (8.0-11.0); Monocytes % 6.6; Neutrophils % 60.7; Platelet Count 350 10^3/uL (130-400); RBC 3.95 10^6/uL (3.93-5.22); RDW 14.6 % (11.7-14.6); RDW-SD 48.3 fL; WBC 8.54 10^3/uL (4.4-10.8)
[2022-07-11 10:16] LABS: Anion Gap 7.1 mmol/L (3-11); CO2 25.9 mmol/L (21.0-32.0); Chloride 104 mmol/L (98-107); Glucose 155 mg/dL (74-106); Potassium 4.1 mmol/L (3.5-5.1); Sodium 137 mmol/L (136-145)
== END 2022-07-11 03:07 | disposition home or self-care (01) ==
LOC: LBO 03:06
PROVIDERS: PCP Nurse Practitioner Adult Health; Visit Provider Obstetrics & Gynecology
DX: N93.8 Other specified abnormal uterine and vaginal bleeding (principal); D25.9 Leiomyoma of uterus, unspecified; E11.9 Type 2 diabetes mellitus without complications; Z01.818 Encounter for other preprocedural examination; Z01.812 Encounter for preprocedural laboratory examination
CPT/HCPCS: 36415; 80051; 82947; 86850; 86900; 86901; 85025

== ENCOUNTER 2022-07-13 08:51 | Inpatient (IN) | payer BC, SELFPAY ==
[2022-07-13] VITALS (11 sets, daily range): BP systolic 89–163; BP diastolic 43–97; PULSE 67–88; RESP 16–32; TEMP 36.3–37.3; O2SAT 95–100; BMI 37.0
[2022-07-13 09:20] LABS: Source Nasal/Nares
[2022-07-13] MEDS: Lactated Ringers 1,000 ML 125 ML IV ×3 (09:50→22:36)
[2022-07-13 09:51] LABS: COVID-19 PCR Negative (Negative)
--- NOTE | 2022-07-13 10:44 | W.ANESPRE ---
General Info Date of Service Date Performed: 07/13/22 Height: 5 ft 5 in Weight: 100.9 kg Body Mass Index (BMI): 37.0 Surgical Procedure: Operation Date: 07/13/22 10:55 Proposed Procedure Side Surgeon p Hysterectomy Vaginal Laparoscopic Assist, possible Cystoscopy Tamika Young DO s Salpingectomy Laparoscopic Bilateral Tamika Young DO [place] Allergies and Home Medications Allergies Allergy/AdvReac Type Severity Reaction Status Date / Time No Known Allergies Allergy Verified 07/13/22 09:22 Home Medication Medication Instructions Recorded blood sugar diagnostic (Blood #100 ea 03/05/21 Glucose Test strips) blood-glucose meter #1 ea 03/05/21 lancets #100 ea 03/05/21 loratadine 10 mg tablet (Allergy 10 mg PO DAILY PRN allergic 03/11/22 Relief (loratadine)) symptoms #90 tabs atorvastatin 10 mg tablet See Rx Instructions .Route 06/01/22 .COMPLEX #90 tabs ibuprofen 800 mg tablet 800 mg PO Q8H PRN #30 tabs 06/22/22 norethindrone acetate 5 mg tablet 5 mg PO Q4H 07/12/22 (Aygestin) Current Visit Medications: Current Medications Generic Name Dose Route Start Last Admin Trade Name Freq PRN Reason Stop Dose Admin Ringer's Solution 1,000 mls @ 125 mls/hr 07/13/22 06:00 07/13/22 09:50 IV 08/11/22 23:59 125 mls/hr INFUSION JODIE Administration Cefazolin Sodium/Dextrose 2 gm in 50 mls @ 100 mls/hr 07/13/22 06:00 Ancef Duplex IVPB 08/11/22 23:59 PREOP JODIE IV Miscellaneous Supplies 1 each 07/13/22 06:00 Iv Access IV 08/11/22 23:59 DIRECTED JODIE Sodium Chloride 0 ml 07/13/22 06:00 Normal Saline Flush 10 Ml Syr IV 08/11/22 23:59 PRN PRN Sodium Chloride 0 ml 07/13/22 06:00 Normal Saline 10 Ml Vial IJ 08/11/22 23:59 DIRECTED PRN Sterile Water 0 ml 07/13/22 06:00 Water,Injection,Sterile 10 Ml Vial IJ 08/11/22 23:59 DIRECTED PRN PFSH Active Problems Active Problems: Problem Status Onset Code Morbid obesity E66.01 Diabetes mellitus type 2 in obese ~03/05/21 E11.69, E66.9 Abnormal uterine bleeding ~04/2021 N93.9 Hyperlipidemia ~05/2021 E78.5 Preoperative exam for gynecologic surgery Z01.818 Status post hysteroscopy Z98.890 Medical History Medical History Fibroid, uterine (~04/2021) Menorrhagia (~03/2021) Perimenopausal; pelvic U/S 03/2021-->fibroid Prediabetes A1C 6.1% 2015 Surgical History Surgical History H/O dilation and curettage H/O tubal ligation (~1999) Tobacco Smoking/Tobacco Use Status: Never Passive smoking exposure: No Second hand exposure: No Alcohol Alcohol Intake: current Alcohol intake frequency: holidays/special occasions only Substance Use Substance use: Never Substance use type: does not use Vital Signs and Lab Results Vital Signs Most Recent Vital Signs in EMR: Most Recent Vital Signs Temp Pulse Resp BP Pulse Ox 37.3 C 74 18 137/89 98 07/13/22 09:37 07/13/22 09:37 07/13/22 09:37 07/13/22 09:37 07/13/22 09:37 Lab Results Blood Type / Crossmatch: Patient ABO/Rh O Positive 07/11/22 Antibody Screen NEGATIVE 07/11/22 Complete Blood Count: White Blood Count 8.54 10^3/uL (4.4-10.8) 07/11/22 09:15 Red Blood Count 3.95 10^6/uL (3.93-5.22) 07/11/22 09:15 Hemoglobin 12.1 g/dL (11.2-15.7) 07/11/22 09:15 Hematocrit 36.4 % (36.0-46.0) 07/11/22 09:15 Platelet Count 350 10^3/uL (130-400) 07/11/22 09:15 Complete Metabolic Panel: Sodium 137 mmol/L (136-145) 07/11/22 09:15 Potassium 4.1 mmol/L (3.5-5.1) 07/11/22 09:15 Chloride 104 mmol/L (98-107) 07/11/22 09:15 Carbon Dioxide 25.9 mmol/L (21.0-32.0) 07/11/22 09:15 Glucose 155 mg/dL (74-106) H 07/11/22 09:15 Liver Function Panel: No Data to Display Coagulation Panel: No Data to Display Cardiac Panel: No Data to Display Arterial Blood Gas: No Data to Display Venous Blood Gas: No Data to Display Pancreas Panel: No Data to Display Thyroid Panel: No Data to Display Infectious Disease: Coronavirus (COVID-19)(PCR) Negative (Negative) 07/13/22 09:12 Coronavirus 2019 Source Nasal/Nares 07/13/22 09:12 Blood Cultures: No Data to Display Toxicology Panel: No Data to Display Panel: No Data to Display Anesthesia Assessment and Plan Anesthesia History Personal History: No History of Anesthesia Complications Family History: No Family History of Anesthesia Complications Exercise Tolerance Exercise Tolerance: Metabolic Equivalents>4 Pertinent Negatives Pertinent Negatives: No Symptoms of GERD, No Major Cardiovascular Symptoms or Complaints, No Major Pulmonary Symptoms or Complaints and No History of CVA/TIA Cardiac & Pulmonary Exam Cardiac Exam: Normal S1/S2 Heart Sounds Pulmonary Exam: Clear Bilateral Breath Sounds Implantable Cardiac Device Does patient have a Pacemaker or an ICD?: No Airway Exam Known Difficult Airway: No Mallampati Class: 2 Mouth Opening: Normal (> 3cm) Thyromental Distance: Greater than 3 cm Neck Range of Motion: Full ROM Neck Circumference: Normal Teeth Condition: Normal Dentition ASA Classification ASA Score: ASA 2 Emergency Case?: No NPO Status NPO Status: NPO Clears >2 hours, Solids >8 hours Status Status: Negative HCG Anesthesia Plan Resuscitation Status: Full Code Anesthesia Technique: General Anesthesia Airway Planned: Endotracheal Tube Pain Management: Intrathecal Analgesia Monitors Used: Standard Monitors
[2022-07-13] MEDS: ceFAZolin 2 GM/50 ML BAG IVPB (11:06)
[2022-07-13] MEDS: Bupivacaine 0.5% Pres-Free 30 ML VIAL (11:50)
--- NOTE | 2022-07-13 13:17 | UTER_PTH ---
PATIENT: Avis King LOC: [facility] U#:[id number] AGE/SX: 47/F ROOM: OBS.305 RE07/13/[address]: Tamika Young DO : 1975 BED: A DIS: 07/15/2022 SPEC #: [id number] RECD: 07/13/22 18:55 STATUS: NIKHIL REQ #: [id number] VALERIA: 07/13/22 13:[address]: Tamika Young DEPT: Surgical Specimen RECD BY: Janna Cantrell ENTERED: 07/13/22 18:57 SP TYPE: UTER OTHR DR: Dilcia Hollis APRN Tissues: 1 - FALLOPIAN TUBE (OTHER) 2 - FALLOPIAN TUBE (OTHER) 3 - UTERUS W OR W/O OVARIES(NOT TUMOR/PROLAPSE) Procedures: GROSS AND MICRO LEVEL 5 Comments: [id number]
[2022-07-13] MEDS: Bupivacaine 0.25% Pres-Free 30 ML VIAL (15:39)
--- NOTE | 2022-07-13 15:40 | DI.RAD_ITS ---
Exam(s) XR ABDOMEN FLAT PLATE EXAM: 2D digital imaging was performed. CLINICAL HISTORY: VERIFY SURGICAL COUNTS. COMPARISON: No exams were available for comparison TECHNIQUE: Single supine view of the pelvis performed. FINDINGS: BOWEL GAS PATTERN: Nondistended. CALCIFICATIONS: No radiopaque calcifications. OSSEOUS STRUCTURES: Normal for age. OTHER FINDINGS: No surgical instruments or metallic foreign bodies. Bladder catheter. IMPRESSION: No metallic foreign body in the field of view. DATA REPOSITORY: RADIATION DOSE DELIVERED:
--- NOTE | 2022-07-13 15:42 | ROE_ITS ---
Date of service: 07/13/22 Time of Service: 15:42 Operative Note Operative Note DATE OF PROCEDURE: 07/13/22 PRE-OP DIAGNOSIS: Symptomatic uterine fibroids, abnormal uterine bleeding Same PROCEDURE: Diagnostic laparoscopy with conversion to open laparotomy for total abdominal hysterectomy, bilateral salpingectomy, cystoscopy SURGEON: Tamika Young ASSISTING SURGEON: Alicia Grossman MISSION MANAGER: Dallas Montero ANESTHESIA TYPE: General LMA/ETT Refer to Anesthesia Record ESTIMATED BLOOD LOSS: 250 PATHOLOGY: other (Remnant of bilateral fallopian tubes, uterus, fibroids, cervix) COMPLICATIONS: None Patient was transported to: PACU Patient's condition: stable Indications: Ongoing abnormal uterine bleeding and symptomatic uterine fibroids Findings: Markedly enlarged 14 to 16-week size uterus with multiple uterine fibroids including, right broad ligament, and lower uterine segment fibroids. Largest fibroid appears to be approximately 5 to 6 cm. Remnants of the fallopian tubes from prior tubal ligation. Normal-appearing ovaries bilaterally. Benign cys toscopy with no evidence of bladder trauma, patent ureteric orifice ease bilaterally. As of note, patient also had caseous material in the umbilicus which tracked down to the fascia. Procedure Description: After full informed consent was obtained, patient was taken the operating suite with an IV running. Initially she was placed in the dorsal supine position for administration of spinal anesthesia for postoperative pain control, however this was unsuccessful. Subsequent to this she was placed in the dorsal supine position and endotracheal intubation performed for the administration of general anesthesia with ease. She was then placed in the modified dorsolithotomy position in [facility] and prepped and draped in the usual sterile fashion. Johns catheter was inserted for continuous bladder drainage. Hulka uterine manipulator placed into the cervical os for manipulation of the uterus under direct visualization. Vaginal speculum was then removed and exam under anesthesia had been previously done revealing a uterus that was approximately 12 to 14 weeks size and globular. Exam was somewhat limited due to body habitus. At this point attention was turned to the abdomen where after infiltration with half percent Marcaine a vertical skin incision was made. The anterior abdominal wall was elevated with sharp towel clips and varies needle inserted. Pneumoperitoneum could not be created due to high pressures at 15 mmHg. Due to this fact, the fascia was grasped with a [place] and attempt was made at dissection for an open scope. During this time, there was noted to be caseous material which extruded from the VATS incision. Caseous material was also noted at the umbilicus. This appears to be residual material near to the urate gas. This was cleansed, and reprepped in a meticulous fashion. Due to this and difficulty in entering the anterior abdominal wall, Dr. Montero, general surgery was asked to assist and evaluate. The fascia was again grasped, and opened. Entry into the abdominal cavity was performed by Dr. Montero. Pneumoperitoneum was created with CO2 gas to a maximum pressure of 15 mmHg inspection of the intra-abdominal, and pelvic areas were found to be free of trauma. The uterus was noted to be markedly enlarged. A second and third right and left lower quadrant trocar site was placed after infiltration of half percent Marcaine, under direct visualization. Attempt was made to elevate the uterus out of the pelvis. With inspection of the uterus, tubes, ovaries, the there was limited mobility of the uterus and a fairly large lower segment bulk which prevented access of instrumentation into the lower pelvis in a safe manner without risking damage to the pelvic sidewalls. In light of this fact, the decision was made to convert to an open hysterectomy. The area of the fascia at the umbilical incision was closed using 0 Vicryl suture in a [id number] fashion. The area which may have represented a connective tract from the fascia to the umbilicus was closed using 0 Vicryl suture in a simple rapid fashion. Skin edges reapproximated using 4-0 undyed Monocryl and sterile dressings were placed. Due to the fact that there was potential contamination with caseous material left umbilicus and with conversion to open laparotomy, the patient was reprepped and draped after being placed in the dorsal supine position. At this point a Pfannenstiel skin incision was made in the usual fashion and carried down to the underlying fascia. The fascia was incised in the midline and fascial incision extended laterally. The rectus muscles were identified split in the midline and the peritoneum identified tented up and entered sharply. The peritoneal incision was then extended superiorly and inferiorly. An Aletha'Lincoln-Aletha'Miles self-retaining retractor was placed into the incision and the bowel was packed far from the surgical field. The uterus was elevated to the best of our ability with double-tooth and single-tooth tenaculum. Attention was first turned to the left utero-ovarian ligament and cautery transected. The left round ligament was elevated, cautery transected, which then allowed access to the broad ligament. The anterior leaf of the broad ligament on the left was extended to the midline. A similar procedure was carried out on the right utero-ovarian ligament, right round ligament, and creation of the remainder of the bladder flap. There were noted to be multiple firm fibroids, 2 of which were in the anterior lower segment, 2 of which were in the right broad ligament. The first, more superior fibroid in the right broad ligament was elevated, and a myomectomy performed with cauterization of the base. This fibroid measured approximately 3 cm. A second right broad ligament fibroid was noted measuring 3 x 5 cm which was elevated and removed with meticulous attention to hemostasis. With these 2 fibroids removed from the surgical field better visualization was noted of the right uterine pedicle and left uterine pedicle. These were clamped transected and suture-ligated in a systematic fashion. At this point there was also a anterior lower uterine segment fibroid which was elevated and removed. Once we are assured that there was good control of the vascular source from the uterine vessels, the uterine fundus was cautery transected and removed. At this point attention was turned to the portions of the left fallopian tube remnant and right fallopian tube remnant which were elevated and cautery ligated for completion of the salpingectomy. Attention was then returned to the cervix which was grasped with a double-tooth tenaculum and elevated. The remainder of the pedicles including uterosacral cardinal complex were clamped transected and suture-ligated. The anterior cervical vaginal interface was entered sharply and with Zeppelin clamps the remainder of the cervical vaginal interface was clamped transected and ligated. The vaginal cuff was then closed using 0 Vicryl suture in a etylaz-pf-dfbbq fashion with 3 distinct sutures. With completion of the hysterectomy, removal of the fallopian tube remnant and removal of the cervix and due to the fact that there was a significant amount of bulk in the lower uterine segment decision was made to perform cystoscopy in order to confirm ureteric patency bilaterally. The abdomen was packed with moist laparotomy sponges, patient was placed in the frog-leg position and cystoscopy performed. The bladder was noted to be atraumatic. Both right and left ureteric orifice ease were noted to be jetting blue-tinged urine vigorously. With affirmation but that both bladder, and ureters or without trauma, cystoscopy was discontinued and Johns catheter reinserted. Patient was then returned to the dorsal supine position. At this point the abdomen was again inspected. There was 1 area that was not hemostatic at the vaginal cuff which was reapproximated with 0 Vicryl suture in a hepfrs-hq-[id number] fashion. Abdomen was irrigated with copious amounts of normal saline and hemostasis was noted both of the vaginal cuff and all pedicles. Laparotomy sponges were then removed from the abdomen as was the O'Lincoln- O'Aquino self-retaining retractor. The fascial incision was then closed using 0 Vicryl suture in a running fashion. Subcutaneous tissue irrigated with copious amounts of normal saline and 3-0 Vicryl was used to reapproximate the subcu space. Skin edge was reapproximated with 4-0 Monocryl suture in a subcuticular fashion sterile dressing was placed after Steri-Strips placed over the incision. Patient awoke from anesthesia without difficulty and was taken to the postanesthesia care unit with a Johns catheter in place draining clear yellow urine. As of note throughout the course of the procedure due to multiple changes in position, additional surgeon for abdominal entry, and complexity of the case along with length of the surgical procedure patient was redosed with a second dose of Ancef, and postoperative x-ray performed. Complications: None apparent Findings: Markedly enlarged 14 to 16-week size globular fibroid uterus. Normal- appearing fallopian tube remnant. Normal-appearing ovaries. Cystoscopy proven atraumatic bladder and patent ureters. Caseous material at the umbilical incision. EBL: 250 mL Pathology: 1. Portion of the right fallopian tube 2. Portion of the left fallopian tube 3 uterus, fibroids, and cervix. All of which will go to pathology for examination Fluids: Crystalloid per anesthesia
[2022-07-13] MEDS: ACETAMINOPHEN 1,000 MG/100 ML BTL 400 MG IVPB (16:17)
--- NOTE | 2022-07-13 16:46 | W.ANESPOSTOP ---
Postoperative Evaluation Date, Time and Location Date Performed: 07/13/22 Time Performed: 16:46 Patient Location: PACU Vital Signs Most Recent Imported Vital Signs: Most Recent Vital Signs Temp Pulse Resp BP Pulse Ox 36.5 C 77 31 H 129/72 100 07/13/22 16:30 07/13/22 16:30 07/13/22 16:30 07/13/22 16:30 07/13/22 16:30 Pain Score Most Recent Pain Score: Most Recent Pain Score Pain Level 0 07/13/22 16:30 Assessment Mental Status: Awake (Alert & Oriented to Patient Baseline) Airway and Respiratory Function: Patent airway with normal (patient baseline) respiratory exam Cardiovascular Function: Hemodynamically Stable Hydration Status: Adequately Hydrated Nausea & Vomiting: No Nausea or Vomiting Pain: Pt. Denies Any Pain Peripheral Nerve Block: Patient did not receive a nerve block
--- NOTE | 2022-07-13 17:15 | W.PM.PROGNOT ---
Date of Service Date of service: 07/13/22 Time of Service: 17:15 Assessment and Plan Assessment and plan (1) Status post total abdominal hysterectomy: Status: Acute Assessment and plan: Postoperative day #0 status post diagnostic laparoscopy with conversion to open total abdominal hysterectomy for significantly enlarged fibroid uterus. Routine postoperative care. CBC in the morning. Advance diet as tolerated. Ambulate when appropriate. Johns catheter until the time that she is ambulatory, with stable vital signs. All of her questions were answered. Subjective Subjective Interval history since last seen: Patient seen in the immediate postoperative period. She has just been transferred to the general floor. Vital signs are stable. Urine output is appropriate 150 cc since the time of the OR. Overall she is doing well. Patient is sleepy but arousable. Discussed findings, and surgical interventions. We will have routine postoperative care. Objective Last Vital Signs Temp 97.7 F 07/13/22 16:30 Pulse 77 07/13/22 16:30 Resp 31 H 07/13/22 16:30 BP 129/72 07/13/22 16:30 Pulse Ox 100 07/13/22 16:30 Laboratory Results - last 24 hr 07/13/22 07/13/22 09:12 16:01 COVID-19 Source Nasal/Nares Cancelled SARS-CoV-2 (PCR) Negative Cancelled
[2022-07-13] MEDS: MORPHine 2 MG/ML SYR IVP (17:56)
[2022-07-13] MEDS: Lidocaine 2% Jelly 11 ML SYR UR (18:32)
[2022-07-13] MEDS: Phenazopyridine 200 MG TAB PO (18:34)
[2022-07-13] MEDS: Ketorolac 30 MG/ML VIAL IVP (19:58)
[2022-07-13] MEDS: Docusate Sodium 100 MG CAP PO (20:09)
[2022-07-13] MEDS: Cephalexin 500 MG CAP PO (20:09)
[2022-07-13] MEDS: Atorvastatin 10 MG TAB PO (21:33)
[2022-07-14 00:07] VITALS: BP 132/83; PULSE 76; RESP 18; TEMP 37.4
[2022-07-14] MEDS: Ketorolac 30 MG/ML VIAL IVP ×3 (02:06→14:13)
[2022-07-14 02:09] VITALS: BP 107/68; PULSE 85; RESP 18; TEMP 36.6
[2022-07-14 07:07] LABS: Abs Immature Grans 0.13 10^3/uL (0.0-0.06); Absolute Lymphocyte Count 1.06 10^3/uL (1.2-3.4); Absolute Neutrophil Count 12.57 10^3/uL (1.2-6.7); Basophils % 0.1; HCT 33.2 % (36.0-46.0); HGB 11.4 g/dL (11.2-15.7); Immature Grans % 0.9; Lymphocytes % 7.1; MCHC 34.3 % (32.0-36.0); MCV 90 fL (80-95); MPV 10.8 fL (8.0-11.0); Neutrophils % 83.9; Platelet Count 335 10^3/uL (130-400); RBC 3.68 10^6/uL (3.93-5.22); RDW 13.3 % (11.7-14.6); RDW-SD 43.7 fL; WBC 14.98 10^3/uL (4.4-10.8)
[2022-07-14 07:17] LABS: Absolute Basophil Count 0.01 10^3/uL (0.0-0.2)
[2022-07-14 07:39] VITALS: BP 127/75; PULSE 62; RESP 16; TEMP 37.3; O2SAT 97
[2022-07-14] MEDS: Cephalexin 500 MG CAP PO ×2 (08:39→21:16)
[2022-07-14] MEDS: Normal Saline Flush 10 ML SYR IV ×2 (08:40→14:13)
[2022-07-14] MEDS: Docusate Sodium 100 MG CAP PO ×2 (08:40→21:16)
--- NOTE | 2022-07-14 09:09 | PGE_ITS ---
Date of Service Date of service: 07/14/22 Time of Service: 09:09 Assessment and Plan Assessment and plan (1) Status post total abdominal hysterectomy: Status: Acute Assessment and plan: Postoperative day #1 status post total abdominal hysterectomy with bilateral salpingectomy. Overall doing well. Pain is reasonably well controlled. She is slowly increasing her diet and activity. Her Johns catheter was discontinued for significant relief of urethral burning and pain. Overall she is doing well. I would anticipate continued progress and potential for discharge home t omorrow. All of her questions were answered today. Surgical procedure was reviewed. Subjective Subjective Interval history since last seen: Patient seen and examined postoperative day #1 status post diagnostic laparoscopy converted to total abdominal hysterectomy with bilateral salpingectomy due to markedly enlarged fibroid uterus. Today, she is doing well. She has been ambulatory. Her Johns catheter was removed this morning. Her vital signs are stable, her postoperative hemoglobin is stable at 11.4. She is tolerating a regular diet and voiding without issue. Exam Const General: cooperative, healthy appearing, comfortable, no acute distress and well developed HENMT Head: normal to inspection Eyes General: appearance normal, both eyes and all related structures Neck Neck: normal visual inspection Resp Effort & Inspection: normal respiratory effort and no cough Auscultation: clear to auscultation bilaterally Cardio Rate: regular rate Rhythm: regular rhythm GI Inspection: normal to inspection, incision (Incisions are dressed, clean, dry, intact. We will remove with shower toda) and large pannus Skin General skin exam: no rashes or lesions noted Extrem General: normal to inspection and no clubbing, cyanosis or edema Objective Last Vital Signs Temp 99.1 F 07/14/22 07:39 Pulse 62 07/14/22 07:39 Resp 16 07/14/22 07:39 BP 127/75 07/14/22 07:39 Pulse Ox 97 07/14/22 07:39 Laboratory Results - last 24 hr 07/13/22 07/13/22 07/14/22 09:12 16:01 06:41 WBC 14.98 H RBC 3.68 L Hgb 11.4 Hct 33.2 L MCV 90 MCH 31.0 MCHC 34.3 RDW 13.3 Plt Count 335 MPV 10.8 Immature Gran % 0.9 Neutrophils % 83.9 Lymphocytes % 7.1 Monocytes % 8.0 Eosinophils % 0.0 Basophils % 0.1 Nucleated RBC % 0.0 Absolute Neutrophils 12.57 H Absolute Lymphocytes 1.06 L Absolute Monocytes 1.20 H Absolute Eosinophils 0.00 Absolute Basophils 0.01 COVID-19 Source Nasal/Nares Cancelled SARS-CoV-2 (PCR) Negative Cancelled
[2022-07-14 11:55] VITALS: BP 120/76; PULSE 84; RESP 16; TEMP 37.2; O2SAT 96
[2022-07-14 15:50] VITALS: BP 128/79; PULSE 78; RESP 16; TEMP 36.7; O2SAT 96
[2022-07-14 20:02] VITALS: BP 118/71; PULSE 78; RESP 18; TEMP 36.7
[2022-07-14] MEDS: Ibuprofen 600 MG TAB PO (21:16)
[2022-07-14] MEDS: Atorvastatin 10 MG TAB PO (21:17)
[2022-07-15 02:54] VITALS: BP 106/66; PULSE 78; RESP 18; TEMP 36.6
[2022-07-15] MEDS: Ibuprofen 600 MG TAB PO (07:09)
[2022-07-15 07:16] VITALS: BP 122/79; PULSE 78; RESP 14; TEMP 36.5; O2SAT 98
[2022-07-15] MEDS: Docusate Sodium 100 MG CAP PO (07:59)
[2022-07-15] MEDS: Cephalexin 500 MG CAP PO (07:59)
--- NOTE | 2022-07-15 08:14 | W.PM.PROGNOT ---
Date of Service Date of service: 07/15/22 Time of Service: 08:14 Assessment and Plan Assessment and plan (1) Status post total abdominal hysterectomy: Status: Acute Assessment and plan: Postoperative day #2 status post total abdominal hysterectomy with bilateral salpingectomy after diagnostic laparoscopy for markedly enlarged fibroid uterus. She will be discharged home today. Follow-up in 2 weeks. She will have p.o. pain medications which will include Motrin, Percocet, Colace for appropriate bowel function, and completion of another 2 days of oral antibiotics. All of her questions were answered today. Subjective Subjective Interval history since last seen: Patient seen and examined this morning. Doing well. Pain is under good control. She is tolerating regular diet and oral pain medication with stable vital signs. She anticipates discharge home today. Exam Const General: cooperative, healthy appearing, comfortable, no acute distress and well developed HENMT Head: normal to inspection Eyes General: appearance normal, both eyes and all related structures Resp Effort & Inspection: normal respiratory effort, no audible wheezes, no cough and no grunting Cardio Rate: regular rate Rhythm: regular rhythm GI Inspection: normal to inspection, incision (Clean, dry, intact), large pannus and other Palpation: soft, not firm and no guarding Other: Moderate ecchymosis at the abdominal pannus. No erythema or drainage from her incisions either stab wounds at the umbilicus, lateral trocar sites, or Pfannenstiel skin incision. Skin General skin exam: no rashes or lesions noted Extrem General: normal to inspection, no clubbing, cyanosis or edema and no calf tenderness Psych Appearance: grossly normal Mental Status: mental status grossly normal Objective Last Vital Signs Temp 97.7 F 07/15/22 07:16 Pulse 78 07/15/22 07:16 Resp 14 07/15/22 07:16 BP 122/79 07/15/22 07:16 Pulse Ox 98 07/15/22 07:16
--- NOTE | 2022-07-15 08:24 | DSE_ITS ---
Date of service: 07/15/22 Time of Service: 08:24 DS: Diagnosis Discharge Diagnosis (1) Status post total abdominal hysterectomy: Status: Acute Asessment and Plan: Postoperative day #2 status post total abdominal hysterectomy with bilateral salpingectomy due to markedly enlarged fibroid uterus. Stable hemoglobin, stable vital signs. Tolerating oral pain medication and a regular diet. Will be seen in the office in 2 and 6 weeks. Prescription sent to the pharmacy. Pathology is pending. Discharge Plan Disposition Patient Disposition: HOME Condition: Good Discharge Details Reason For Visit: VIOLET Admit Date/Time: 07/13/22 08:51 Admit Provider: Tamika Young Attending Provider: Tamika Young Primary Care Provider: Dilcia Hollis Hospital Course Hospital Course: Patient underwent a diagnostic laparoscopy with conversion to open laparotomy for total abdominal hysterectomy bilateral salpingectomy due to markedly enlarged fibroid uterus. Her intraoperative procedure was uncomplicated. She did have a cystoscopy intraoperatively to assure that the bladder was without trauma and ureters were functioning bilaterally. As of note, while infraumbilical skin incision was made there was noted to be a moderate amount of caseous substance at the umbilicus, with probable collection of debris at the urachus. For this reason she will be discharged home to complete an additional 2 days of oral antibiotics. She is discharged home postoperative day #2, ambulating, tolerating regular diet and oral pain medication with stable vital signs. Her activity will be no heavy lifting and pelvic rest for 6 weeks. Prescriptions were sent to the pharmacy which include ibuprofen, Percocet, Colace, Keflex. Pathology is pending Home Meds and New Rx's Prescriptions: New ibuprofen 800 mg tablet 800 mg PO Q8H PRNQty: 60 1RF oxycodone-acetaminophen [Percocet] 5-325 mg tablet 1 tab PO Q8H PRNQty: 10 0RF docusate sodium [Colace] 100 mg capsule 100 mg PO BID Qty: 30 0RF cephalexin 500 mg capsule 500 mg PO BID Qty: 4 0RF No Action (DME) blood-glucose meter Misc See Rx Instructions .MEDSUPPLY Qty: 1 0RF Rx Instructions: As directed to check blood glucose daily. No insulin. Dispense covered brand. (DME) Blood Glucose Test Strip See Rx Instructions .MEDSUPPLY Qty: 100 3RF Label Comments: pt. didnt take blood sugar this AM usually it is 100 or less in the morning Rx Instructions: As directed to check blood glucose daily. No insulin. Dispense covered brand. (DME) lancets Misc See Rx Instructions .MEDSUPPLY Qty: 100 3RF Rx Instructions: As directed to check blood glucose daily. No insulin. Dispense covered brand. loratadine [Allergy Relief (loratadine)] 10 mg tablet 10 mg PO DAILY PRN (Reason: allergic symptoms) Qty: 90 3RF atorvastatin 10 mg tablet See Rx Instructions .ROUTE .COMPLEX Qty: 90 3RF Dose Instruction: TAKE 1 TABLET BY MOUTH EVERY NIGHT AT BEDTIME FOR DIABETES OR CHOLESTEROL Rx Instructions: TAKE 1 TABLET BY MOUTH EVERY NIGHT AT BEDTIME FOR DIABETES OR CHOLESTEROL ibuprofen 800 mg tablet 800 mg PO Q8H PRNQty: 30 0RF norethindrone acetate [Aygestin] 5 mg tablet 5 mg PO Q4H Discharge Instructions Stand Alone Forms: DSU Post Class 1 Owner Operator SurgeryW/Incision Activity:: pelvic rest, no heavy lif Equipment/Supplies:: No Equipment Needed Diet:: As Tolerated Discharge Orders Discharge Orders: Discharge Order (Routine); Ordered 07/15/22 Ordered By: Tamika Young DS: Summary Time Spent with Patient providing and/or coordinating discharge services: Less than 30 minutes Status at Discharge Functional status at discharge: independent ambulation Overall status at discharge: patient is progressing back to baseline Mental Status: mental status grossly normal Speech and Movement: speech and movement normal Mood: congruent mood Affect: normal affect Exam Narrative Exam Narrative: See physical exam from progress note dated 07/15/2022 Psych Mental Status: mental status grossly normal Speech and Movement: speech and movement normal Mood: congruent mood Affect: normal affect DS: Data Vitals/I&O Vitals and I&O: Vital Signs Temperature 97.7 F 07/15/22 07:16 Temperature Source Oral 07/15/22 07:16 Pulse 78 07/15/22 07:16 Pulse Rhythm Regular 07/15/22 07:16 Respiratory Rate 14 07/15/22 07:16 Respiratory Effort 07/15/22 07:16 Respiratory Depth Normal 07/15/22 07:16 Respiratory Pattern Normal 07/15/22 07:16 Blood Pressure 122/79 07/15/22 07:16 Pulse Oximetry 98 07/15/22 07:16 Respiratory End-tidal CO2 26 07/13/22 16:30 Oxygen Delivery Method Room Air 07/15/22 07:16 Oxygen Flow Rate 0 07/15/22 07:16 Pain Level 4 07/15/22 07:09 Intake & Output 07/14/22 07/14/22 07/15/22 11:59 23:59 11:59 Intake Total 2540 / 2540 Output Total 1550 / 2250 700 / 2250 500 / 500 Balance 990 / 290 -700 / 290 -500 / -500 Intake: IV 1700 / 1700 Oral 840 / 840 Output: Urine 1550 / 2250 700 / 2250 500 / 500 Other: Urine Color Dark Ingrid Green Yellow Urine Appearance Clear Clear Clear Urine Odor Strong None None Voiding Methods Toilet Toilet PFSH All Active Problems (Updated 07/15/22 @ 08:16 by Tamika Young DO) Status post total abdominal hysterectomy (Acute) Diagnostic laparoscopy followed by total abdominal hysterectomy with bilateral salpingectomy due to markedly enlarged fibroid uterus. Morbid obesity (Chronic) Diabetes mellitus type 2 in obese (Chronic ~03/05/21) A1C 11.5% 03/05/2021-->diagnosis Hyperlipidemia (Chronic ~05/2021) 05/24/2021 initiated statin Medical History (Updated 07/15/22 @ 08:16 by Tamika Young DO) Fibroid, uterine (~04/2021) Menorrhagia (~03/2021) Perimenopausal; pelvic U/S 03/2021-->fibroid Prediabetes A1C 6.1% 2016 Status post hysteroscopy Hysteroscopy, dilation, curettage. Removal of endocervical polyp and endometrial polyp 06/22/2022 Surgical History (Updated 07/14/22 @ 09:11 by Tamika Young DO) H/O dilation and curettage H/O tubal ligation (~1999) Family History Father , From Esophageal Cancer Hypertension Diabetes Esophageal cancer Tobacco (chew) Mother Diabetes Lifestyle controlled Hypertension Paternal Aunt Breast cancer Unknown age Diabetes Paternal Grandfather Heart disease Brother Heart disease <50yo Social History Smoking/Tobacco Use Status: Never Second Hand Exposure: No Smoking risk assessment performed?: Yes Alcohol Intake: current Alcohol Intake frequency: holidays/special occasions only Drug use: Never Substance use type: does not use Adopted: No Caregiver/Support person: No Foster care: No Household members: spouse, children and other Details: 2 biological (21yr old son and 27yr old daughter) and 1 adopted son age 15. 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 Pets and animals: Yes Sexually active: Yes Do you think of yourself as: straight/heterosexual Current gender identity: female What is your relationship status?: How often do you talk on the phone with friends or family?: three or more times per week How often do you get together with friends or relatives?: twice per week Do you belong to any clubs or organized social groups?: no Panel score (0-1 are the most socially isolated patients): 2 What type of physical activity do you participate in: walking Duration: > 90 minutes/day Frequency: 5-6 times per week Blanca/Denominational: Other Special blanca needs: No Seatbelt use: always Helmet use: Yes Helmet use: always Drive intox 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
== END 2022-07-15 10:45 | disposition home or self-care (01) | DRG 743 ==
LOC: PDS 15:51 → OBS 17:12
PROVIDERS: Admitting Provider Obstetrics & Gynecology; PCP Nurse Practitioner Adult Health; Visit Provider Obstetrics & Gynecology
PROC: 0UT9FZZ Resection of Uterus, Via Natural or Artificial Opening With Percutaneous Endoscopic Assistance (ICD-10-PCS; CPT 58150; principal; 2022-07-13 10:45)
DX: D25.9 Leiomyoma of uterus, unspecified (principal); N93.9 Abnormal uterine and vaginal bleeding, unspecified; E66.01 Morbid (severe) obesity due to excess calories; E11.9 Type 2 diabetes mellitus without complications; E78.5 Hyperlipidemia, unspecified; Z68.37 Body mass index [BMI] 37.0-37.9, adult; Z53.31 Laparoscopic surgical procedure converted to open procedure
CPT/HCPCS: 58150; 52000; 36415; 81025; 87635; 74018; 85025; 88307; J0131; J0690; J1100; J1885; J2250; J2270; J2405; J2704; J3010

== ENCOUNTER 2022-09-13 03:30 | Outpatient (CLI) | payer BC, SELFPAY ==
[2022-09-13 09:01] LABS: COMMENT (LAB VIEW ONLY) 104.95 mg/dL; Microalb ug/mg Crea 9.8 ug/mg Cr
[2022-09-13 09:02] LABS: Anion Gap 8.1 mmol/L (3-11); BUN 19 mg/dL (7-18); CO2 29.9 mmol/L (21.0-32.0); CREATININE 0.9 mg/dL (0.55-1.02); Calcium 9.4 mg/dL (8.5-10.1); Calculated LDL 96 mg/dL (<100); Chloride 100 mmol/L (98-107); Cholesterol 184 mg/dL (<200); Estimated GFR 78.37 (mL/min/1.73m2); Glucose 144 mg/dL (74-106); HDL Cholesterol 73 mg/dL (40-60); Potassium 4.2 mmol/L (3.5-5.1); Sodium 138 mmol/L (136-145); Triglyceride 77 mg/dL (<150)
== END 2022-09-13 03:31 | disposition home or self-care (01) ==
LOC: LBO 03:30
PROVIDERS: PCP Nurse Practitioner Adult Health; Referring Provider Nurse Practitioner Adult Health; Visit Provider Nurse Practitioner Adult Health
DX: E11.69 Type 2 diabetes mellitus with other specified complication (principal); E66.9 Obesity, unspecified; E78.5 Hyperlipidemia, unspecified
CPT/HCPCS: 36415; 80048; 80061; 82043; 82570

== ENCOUNTER 2023-04-10 01:15 | Outpatient (CLI) | payer BC, SELFPAY ==
--- NOTE | 2023-04-10 07:00 | DI.MAMMO_ITS ---
Exam(s) MAMMO SCREENING EXAM: MAMMO SCREENING CLINICAL HISTORY: screening, Z12.39. TECHNIQUE: Bilateral full field digital CC and MLO mammographic images were obtained with 3D tomosyn thesis and utilizing computer aided detection (CAD). COMPARISON: Prior mammograms were reviewed. FINDINGS: There has been no significant change in the appearance and distribution of the fibroglandular tissue. Two benign-appearing nodules having the appearance of lymph nodes are unchanged. There are no new spiculated masses nor malignant appearing microcalcification groups. There is no significant architectural distortion nor skin thickening-retraction. IMPRESSION: No radiographic evidence of malignancy. Benign findings. BI-RADS Category 2 - Benign Findings Breast Density - Category B - Scattered areas of fibroglandular density Breast density Category C or D implies that the patient has dense breast tissue. Dense breast tissue can make it harder to find cancer on a mammogram. Dense breast tissue is also associated with an incr eased risk of breast cancer. This information about the result of the mammogram report was provided to the patient to raise their awareness. Use this report when you speak with the patient about their risks for breast cancer, which includes their family history. At that time, you may recommend additional screening tests (Ultrasoun d or MRI) as these tests may add significant information. A negative radiographic report should not delay biopsy if a dominant or clinically suspicious mass is present. Up to ten percent of cancers are not identified on mammography. A negative report may reinforce clinical impression. Adenosis and dense breasts may obscure an underlying neoplasm. False positive reports average 6 to 10%. Patient will receive a letter notifying them of these results.
== END 2023-04-10 01:35 ==
LOC: DI 01:15
PROVIDERS: PCP Nurse Practitioner Adult Health; Visit Provider Obstetrics & Gynecology
DX: Z12.31 Encounter for screening mammogram for malignant neoplasm of breast (principal)
CPT/HCPCS: 77063; 77067

== ENCOUNTER → 2023-04-28 00:23 | Outpatient (CLI) | payer BC, SELFPAY ==
--- NOTE | 2023-04-28 09:15 | DI.RAD_ITS ---
Exam(s) XR KNEE RT 3V AP,LAT,SCOTTY EXAM: XR KNEE RT 3V AP,LAT,SCOTTY CLINICAL HISTORY: Assess bony alignment,RT KNEE PAIN, M26.561. TECHNIQUE: 2D digital imaging was performed. COMPARISON: No exams were available for comparison FINDINGS: 3 views No evidence of acute fracture. There is a small amount of increased joint fluid. There is significa nt narrowing of the medial compartment [id number] and marginal osteophytes off the medial compartme nt. The lateral compartment exhibits normal height. Mild degenerative changes noted in the patellof emoral compartment. IMPRESSION: Significant medial compartment narrowing. Small joint effusion DATA REPOSITORY: RADIATION DOSE DELIVERED:
== END ==
PROVIDERS: PCP Nurse Practitioner Adult Health; Visit Provider Nurse Practitioner Adult Health
DX: M17.11 Unilateral primary osteoarthritis, right knee (principal)
CPT/HCPCS: 73562

== ENCOUNTER 2023-10-17 04:31 | Outpatient (CLI) | payer BC, SELFPAY ==
[2023-10-17 07:45] LABS: Hemoglobin A1C 7.5 % (<5.7)
[2023-10-17 07:48] LABS: COMMENT (LAB VIEW ONLY) 161.28 mg/dL; Microalb ug/mg Crea 6.7 ug/mg Cr
[2023-10-17 07:49] LABS: Anion Gap 9.2 mmol/L (3-11); BUN 19 mg/dL (7-18); CO2 25.8 mmol/L (21.0-32.0); Calcium 9.2 mg/dL (8.5-10.1); Calculated LDL 89 mg/dL (<100); Chloride 104 mmol/L (98-107); Cholesterol 160 mg/dL (<200); Estimated GFR 68.63 (mL/min/1.73m2); Glucose 198 mg/dL (74-106); HDL Cholesterol 58 mg/dL (40-60); Sodium 139 mmol/L (136-145); Triglyceride 66 mg/dL (<150)
== END 2023-10-17 04:32 | disposition home or self-care (01) ==
LOC: LBO 04:31
PROVIDERS: Absent Provider Nurse Practitioner Adult Health; PCP Nurse Practitioner Adult Health; Visit Provider Nurse Practitioner Adult Health
DX: E78.5 Hyperlipidemia, unspecified (principal); E11.69 Type 2 diabetes mellitus with other specified complication; E66.8 Other obesity; Z68.34 Body mass index [BMI] 34.0-34.9, adult
CPT/HCPCS: 36415; 80048; 80061; 82043; 82570; 83036

== ENCOUNTER 2024-05-17 00:15 | Outpatient (CLI) | payer BC, SELFPAY ==
--- NOTE | 2024-05-17 08:30 | DI.MAMMO_ITS ---
Exam(s) MAMMO SCREENING EXAM: MAMMO SCREENING CLINICAL HISTORY: screening,Z12.39 TECHNIQUE: Bilateral full field digital CC and MLO mammographic images were obtained with 3D tomosyn thesis and utilizing computer aided detection (CAD). COMPARISON: Available for comparison. FINDINGS: Masses/Architectural Distortion: Nonspecific well-circumscribed breast nodules are seen bilaterally. No suspicious nodules or areas of architectural distortion are seen. Microcalcifications: No suspicious pleomorphic-type are seen. Skin Thickening/Nipple Retraction: None. IMPRESSION: 1. No significant interval change with no specific features of malignancy noted. 2. Unless there is more urgent need, screening mammography is recommended, as per [employer] guidelines. BI-RADS Category 2 - Benign Findings Breast Density - Category B - Scattered areas of fibroglandular density Breast density category C or D implies that the patient has dense breast tissue. Dense breast tissue is very common and is not abnormal but dense breast tissue can make it harder to find cancer on a ma mmogram. Also, dense breast tissue may increase their breast cancer risk. This information about the result of the mammogram report was provided to the patient to raise their awareness. Use this report when you speak with the patient about their risks for breast cancer, which includes their family hist ory. At that time, you may recommend for more screening tests (Ultrasound or MRI) as they might be us eful based on their risk. A negative radiographic report should not delay biopsy if a dominant or clinically suspicious mass is present. Up to ten percent of cancers are not identified on mammography. A negative report may reinforce clinical impression. Adenosis and dense breasts may obscure an underlying neoplasm. False positive reports average 6 to 10%. Patient will receive a letter notifying them of these results.
== END 2024-05-17 00:35 ==
LOC: DI 00:16
PROVIDERS: PCP Nurse Practitioner Adult Health; Visit Provider Nurse Practitioner Adult Health
DX: Z12.31 Encounter for screening mammogram for malignant neoplasm of breast (principal)
CPT/HCPCS: 77063; 77067

== ENCOUNTER 2024-10-21 02:42 | Outpatient (CLI) | payer BC, SELFPAY ==
[2024-10-21 08:21] LABS: Anion Gap 8.2 mmol/L (3-11); BUN 15 mg/dL (7-18); CO2 27.8 mmol/L (21.0-32.0); CREATININE 0.9 mg/dL (0.55-1.02); Calculated LDL 76 mg/dL (<100); Chloride 107 mmol/L (98-107); Cholesterol 150 mg/dL (<200); Glucose 101 mg/dL (74-106); HDL Cholesterol 66 mg/dL (40-60); Potassium 4.1 mmol/L (3.5-5.1); Sodium 143 mmol/L (136-145); Triglyceride 40 mg/dL (<150)
[2024-10-21 08:22] LABS: Hemoglobin A1C 6.9 % (<5.7)
[2024-10-21 08:27] LABS: COMMENT (LAB VIEW ONLY) 119.05 mg/dL; Microalb ug/mg Crea 9.7 ug/mg Cr
== END 2024-10-21 02:43 | disposition home or self-care (01) ==
LOC: LBO 02:42
PROVIDERS: PCP Nurse Practitioner Adult Health; Referring Provider Nurse Practitioner Adult Health; Visit Provider Nurse Practitioner Adult Health
DX: E78.2 Mixed hyperlipidemia (principal); E11.69 Type 2 diabetes mellitus with other specified complication; E66.9 Obesity, unspecified
CPT/HCPCS: 36415; 80048; 80061; 82043; 82570; 83036

== ENCOUNTER 2024-12-26 15:09 | Outpatient (CLI) | payer BC, SELFPAY ==
--- NOTE | 2024-12-26 15:01 | DI.RAD_ITS ---
Exam(s) XR KNEE LT 3V AP,LAT,SCOTTY EXAM: XR KNEE LT 3V AP,LAT,SCOTTY CLINICAL HISTORY: left knee pain. TECHNIQUE: 2D digital imaging was performed. Three views. COMPARISON: CR XR KNEE RT 3V AP,LAT,SCOTTY from 04/28/2023 FINDINGS: BONES: No acute fracture is present. No bony destructive lesion is seen. JOINTS: Moderate narrowing of the medial femoral tibial joint. Very mild periarticular spur spurring and mild varus angulation. Mild spurring at the articular aspect of the patella. No joint effusion is seen. SOFT TISSUE: Normal. IMPRESSION: Moderate degenerative changes medial femoral tibial joint DATA REPOSITORY: RADIATION DOSE DELIVERED:
== END 2024-12-26 15:10 | disposition home or self-care (01) ==
LOC: DIORS 15:09
PROVIDERS: PCP Nurse Practitioner Adult Health; Visit Provider Student in an Organized Health Care Education/Training Program
DX: M25.562 Pain in left knee (principal); M17.11 Unilateral primary osteoarthritis, right knee; M17.12 Unilateral primary osteoarthritis, left knee
CPT/HCPCS: 73562

== ENCOUNTER 2025-03-27 14:40 | Outpatient (CLI) | payer BC, SELFPAY ==
--- NOTE | 2025-03-27 14:15 | DI.RAD_ITS ---
Exam(s) XR STANDING ALIGNMENT EXAM: XR STANDING ALIGNMENT CLINICAL HISTORY: left knee, pre TKA. TECHNIQUE: 2D digital imaging was performed. COMPARISON: CR XR KNEE LT 3V AP,LAT,SCOTTY from 12/26/2024 FINDINGS: 3 views There is significant degenerative changes in the medial compartments of both knees. There is [id number] narrowing of the medial compartments and marginal osteophytes of the medial compartments bilaterally. The lateral compartments both knees exhibit preserved height. Both hips appear unremarkable. Sacroiliac joints unremarkable. Ankles appear unremarkable. Bone density normal. No osseous lesions. IMPRESSION: Advanced degenerative narrowing of the medial compartments of both knees, this appearing relatively symmetrical. DATA REPOSITORY: RADIATION DOSE DELIVERED:
== END 2025-03-27 14:41 | disposition home or self-care (01) ==
LOC: DIORS 14:40
PROVIDERS: PCP Nurse Practitioner Adult Health; Visit Provider Student in an Organized Health Care Education/Training Program
DX: M17.12 Unilateral primary osteoarthritis, left knee (principal)
CPT/HCPCS: 77073

== ENCOUNTER 2025-06-23 03:30 | Outpatient (CLI) | payer BC, SELFPAY ==
[2025-06-23 14:33] LABS: HCT 40.4 % (36.0-46.0); HGB 14.4 g/dL (11.2-15.7); MCH 30.3 pg (27.0-33.0); MCHC 35.6 % (32.0-36.0); MCV 85 fL (80-95); MPV 10.8 fL (8.0-11.0); Platelet Count 222 10^3/uL (130-400); RBC 4.76 10^6/uL (3.93-5.22); RDW 12.7 % (11.7-14.6); RDW-SD 39.2 fL; WBC 8.43 10^3/uL (4.4-10.8)
[2025-06-23 14:43] LABS: Anion Gap 9.1 mmol/L (3-11); BUN 16 mg/dL (7-18); CO2 29.9 mmol/L (21.0-32.0); Calcium 9.3 mg/dL (8.5-10.1); Chloride 103 mmol/L (98-107); Estimated GFR 60.46 (mL/min/1.73m2); Glucose 118 mg/dL (74-106); Potassium 3.7 mmol/L (3.5-5.1); Sodium 142 mmol/L (136-145)
== END 2025-06-23 03:31 | disposition home or self-care (01) ==
LOC: LBO 03:30
PROVIDERS: PCP Nurse Practitioner Adult Health; Visit Provider Student in an Organized Health Care Education/Training Program
DX: M17.12 Unilateral primary osteoarthritis, left knee (principal); E11.69 Type 2 diabetes mellitus with other specified complication; E66.9 Obesity, unspecified; Z01.818 Encounter for other preprocedural examination
CPT/HCPCS: 80048; 85027; 82985

== ENCOUNTER 2025-07-01 09:50 | Day surgery (SDC) | payer BC, SELFPAY ==
[2025-07-01] VITALS (17 sets, daily range): BP systolic 93–161; BP diastolic 52–101; PULSE 58–76; RESP 12–22; TEMP 36.2–36.9; O2SAT 95–100; BMI 40.8
--- NOTE | 2025-07-01 07:19 | W.PM.DSUDISC ---
Date of service: 07/01/25 Discharge Plan Disposition Patient Disposition: Home Condition: Good Discharge Details Reason For Visit: Left knee DJD Attending Provider: Khoa Johns Primary Care Provider: Dilcia Hollis Home Meds and New Rx's Prescriptions: New aspirin 81 mg tablet,delayed release (DR/EC) 81 mg PO BID 30 Days Qty: 60 0RF acetaminophen 500 mg tablet 1,000 mg PO Q8H PRN Qty: 90 0RF Rx Instructions: Take two tablets up to every 8 hours as needed for pain pantoprazole 40 mg tablet,delayed release (DR/EC) 40 mg PO DAILY Qty: 14 0RF Rx Instructions: Take one tablet once daily dexamethasone 4 mg tablet 4 mg PO DAILY Qty: 2 0RF Rx Instructions: Take one tablet once daily for two days docusate sodium [Colace] 100 mg capsule 100 mg PO BID Qty: 28 0RF gabapentin 300 mg capsule 300 mg PO QHS Qty: 14 0RF Rx Instructions: Take one tablet at bedtime oxycodone 5 mg tablet 5 mg PO Q4H PRNQty: 10 0RF Rx Instructions: Take one tablet up to every 4 hours as needed for severe postoperative pain Continued (DME) blood-glucose meter Misc See Rx Instructions .MEDSUPPLY Qty: 1 0RF Rx Instructions: As directed to check blood glucose daily. No insulin. Dispense covered brand. loratadine [Allergy Relief (loratadine)] 10 mg tablet 10 mg PO DAILY PRN (Reason: allergic symptoms) Qty: 90 3RF (DME) OneTouch Ultra Test Strip See Rx Instructions .Route Qty: 100 4RF Rx Instructions: Test twice daily as directed. celecoxib [Celebrex] 200 mg capsule 200 mg PO DAILY MDD 400mg/24h PRN (Reason: pain) Qty: 60 6RF Rx Instructions: Knee pain Max dose 400mg/24h (only on rare occasion) insulin degludec [Tresiba FlexTouch U-100] 100 unit/mL (3 mL) insulin pen 15 unit subcut DAILY Qty: 30 2RF Rx Instructions: Start with 15 units and may increase per direction of clinical pharmacist or PCP to max dose of 40 units/day (DME) lancets [OneTouch Delica Plus Lancet] 33 gauge misc See Rx Instructions .ROUTE .COMPLEX Qty: 100 3RF Dose Instruction: TEST BLOOD GLUCOSE ONCE DAILY DIRECTED Rx Instructions: TEST BLOOD GLUCOSE ONCE DAILY DIRECTED Ozempic 2 mg/dose (8 mg/3 mL) pen injector 2 mg subcut QWEEK 28 Days Qty: 3 12RF Rx Instructions: Inject 2.0 mg once weekly as directed. atorvastatin 10 mg tablet See Rx Instructions .ROUTE .COMPLEX Qty: 90 3RF Dose Instruction: TAKE 1 TABLET BY MOUTH EVERY NIGHT AT BEDTIME FOR DIABETES OR CHOLESTEROL Rx Instructions: TAKE 1 TABLET BY MOUTH EVERY NIGHT AT BEDTIME FOR DIABETES OR CHOLESTEROL (DME) pen needle, diabetic 31 gauge x 5/16 needle See Rx Instructions .ROUTE .COMPLEX Qty: 100 3RF Dose Instruction: USE DIRECTED TO ADMINISTER INSULIN ONCE A DAY, TO MAINTAIN HBA1C LESS THAN 7% Rx Instructions: USE DIRECTED TO ADMINISTER INSULIN ONCE A DAY, TO MAINTAIN HBA1C LESS THAN 7% Discharge Instructions Additional Instructions: Total Knee Discharge Instructions Activity: The most important activity is to walk and to work on gentle motion (both flexion and extension). You should try to take short walks a few times a day. It is important that when resting you work on keeping the knee straight. Avoid putting a pillow behind the knee as this will encourage flexion. Work on range of motion exercises as provided by Physical Therapy. - Start outpatient physical therapy within 2 weeks. - You should wear the SHIRLEY hose on both legs for 2 weeks. You may remove these at night. You may also use any compression sock in place of the SHIRLEY hose. - Utilize [employer] to review exercises, see videos on exercises and obtain basic information pertaining to your surgery and your recovery. Dressing: Remove the Leo wrap by 2 days after your surgery and put on the SHIRLEY stocking given to you from the hospital. Keep the surgical dressing (underneath the LEO wrap) in place for at least one week. After the first week it may be removed and replaced with light gauze and tape or nothing. The wound and dressing may get wet after 3 days but avoid soaking the dressing or otherwise it will need to be changed. Many people prefer covering the dressing with cling wrap (saran wrap) to minimize it from getting soaked. If it gets wet, just pat dry. If it starts to peel off then it will need to be changed. Medications: - You should take Tylenol and continue with your baseline anti-inflammatory Celebrex as your primary pain control medications. Increase your baseline Celebrix to 200 mg twice daily at least for the first two weeks until your follow-up appointment with orthopedics. - You have been prescribed a stronger pain medication Oxycodone for breakthrough pain, take as needed as prescribed. - You have also been prescribed a stomach acid reduction agent Pantoprozole to help reduce stomach acid and reflux. - You have been prescribed Gabapentin to take at night for restlessness and nerve pain. - You will be taking Aspirin 81mg twice a day for DVT prevention unless instructed otherwise. - You have also been prescribed Decadron to take to control post-operative nausea and pain. You will start this tomorrow. - If you have constipation you should take Colace (which has been prescribed) or Miralax (which is available [id number]). It takes most people 3-4 days to have a bowel movement. Follow-up: 2 weeks If you have any acute concerns or questions, please do not hesitate to contact the office at [phone]. You may contact Dr. Johns with any questions after hours through the hospital at [phone] or on his cell phone at [phone]. Stand Alone Forms: Anesthesia Discharge Inst., Anes.Nerve Block Instructions, Rodrigo Mckeon (DSU) Referrals: Khoa Johns MD [ [facility] STAFF PHYSICIAN, Orthopaedic Surgical] Equipment/Supplies: Walker Activity:: Elevate Remove Dressings/Wound Care:: Do Not Remove Shower/Bathe:: Cover Diet:: As Tolerated Discharge Orders Discharge Orders: Discharge Order (Routine); Ordered 07/01/25 Ordered By: Jessica Wu
[2025-07-01] MEDS: Lactated Ringers 1,000 ML 80 ML IV (10:43)
[2025-07-01] MEDS: Acetaminophen 500 MG TAB 1000 MG PO (10:47)
[2025-07-01] MEDS: Celecoxib 200 MG CAP 400 MG PO (10:48)
[2025-07-01] MEDS: Gabapentin 300 MG CAP PO (10:48)
--- NOTE | 2025-07-01 11:34 | W.ANESPRE ---
General Info Date of Service Date Performed: 07/01/25 Height: 5 ft 4.25 in Weight: 108.8 kg Body Mass Index (BMI): 40.8 Surgical Procedure: Operation Date: 07/01/25 12:55 Proposed Procedure Side Surgeon p Knee Total Arthroplasty Left Khoa Johns MD Meds Allergies and Home Medications Allergies Allergy/AdvReac Type Severity Reaction Status Date / Time amoxicillin Allergy Mild Skin Rash Verified 07/01/25 09:58 Home Medication ?Medication ?Instructions ?Recorded blood-glucose meter #1 ea 03/05/21 loratadine 10 mg tablet (Allergy 10 mg PO DAILY PRN allergic 01/25/24 Relief (loratadine)) symptoms #90 tabs blood sugar diagnostic (OneTouch #100 ea 05/03/24 Ultra Test strips) celecoxib 200 mg capsule (Celebrex) 200 mg PO DAILY PRN pain #60 caps 07/29/24 lancets 33 gauge (OneTouch Delica #100 ea 01/08/25 Plus Lancet) semaglutide 2 mg/dose (8 mg/3 mL) 2 mg (0.75 mL) subcut QWEEK 28 05/16/25 subcutaneous pen injector (Ozempic) days #3 mL atorvastatin 10 mg tablet See Rx Instructions .Route 05/27/25 .COMPLEX #90 tabs pen needle, diabetic 31 gauge x #100 ea 05/27/2501/24 insulin degludec 100 unit/mL (3 15 unit (0.15 mL) subcut DAILY #30 06/18/25 mL) subcutaneous pen (Tresiba mL FlexTouch U-100 insulin) acetaminophen 500 mg tablet 1,000 mg (2 x 500 mg) PO Q8H PRN 07/01/25 pain #90 tabs aspirin 81 mg tablet,delayed 81 mg PO BID 30 days #60 tabs 07/01/25 release dexamethasone 4 mg tablet 4 mg PO DAILY #2 tabs 07/01/25 docusate sodium 100 mg capsule 100 mg PO BID #28 caps 07/01/25 (Colace) gabapentin 300 mg capsule 300 mg PO QHS #14 caps 07/01/25 oxycodone 5 mg tablet 5 mg PO Q4H PRN #10 tabs 07/01/25 pantoprazole 40 mg tablet,delayed 40 mg PO DAILY #14 tabs 07/01/25 release Current Visit Medications: Current Medications Generic Name Dose Route Start Last Admin Trade Name Bam PRN Reason Stop Dose Admin Acetaminophen 1,000 mg 07/01/25 06:00 07/01/25 10:47 Acetaminophen 500 Mg Tab PO 07/01/25 23:59 1,000 mg PREOP JODIE Administration Celecoxib 400 mg 07/01/25 06:00 07/01/25 10:48 Celecoxib 200 Mg Cap PO 07/01/25 23:59 400 mg PREOP JODIE Administration Gabapentin 300 mg 07/01/25 06:00 07/01/25 10:48 Gabapentin 300 Mg Cap PO 07/01/25 23:59 300 mg PREOP JODIE Administration Hydromorphone HCl 0.5 mg 07/01/25 07:16 Hydromorphone 2 Mg/Ml Syr IVP 07/31/25 07:15 Q2H PRN PRN Ringer's Solution 1,000 mls @ 80 mls/hr 07/01/25 06:00 07/01/25 10:43 IV 07/01/25 23:59 80 mls/hr INFUSION JODIE Administration Cefazolin Sodium/Dextrose 2 gm in 50 mls @ 100 mls/hr 07/01/25 06:00 Ancef Duplex IVPB 07/01/25 23:59 PREOP JODIE Tranexamic Acid/Sodium Chloride 1,000 mg in 100 mls @ 600 mls/hr 07/01/25 06:00 IVPB 07/01/25 23:59 PREOP JODIE Cefazolin Sodium/Dextrose 1 gm in 50 mls @ 100 mls/hr 07/01/25 08:00 Ancef Duplex IVPB 07/02/25 00:29 Q8H JODIE IV Miscellaneous Supplies 1 each 07/01/25 06:00 Iv Access IV 07/01/25 23:59 DIRECTED JODIE Oxycodone HCl 0 mg 07/01/25 07:16 Oxycodone 5 Mg Tab PO 07/31/25 07:15 Q3H PRN PRN Pain Sodium Chloride 0 ml 07/01/25 06:00 Normal Saline Flush 10 Ml Syr IV 07/01/25 23:59 PRN PRN Sodium Chloride 0 ml 07/01/25 06:00 Normal Saline 10 Ml Vial IJ 07/01/25 23:59 DIRECTED PRN Sterile Water 0 ml 07/01/25 06:00 Water,Injection,Sterile 10 Ml Vial IJ 07/01/25 23:59 DIRECTED PRN Tranexamic Acid 1,300 mg 07/01/25 07:16 Tranexamic Acid 650 Mg Tab PO 07/31/25 07:15 ONCE PRN postoperative PFSH Active Problems Active Problems: Problem Status Onset Code History of total left knee replacement Acute 07/01/25 Z96.652 Cortical cataract Acute 11/15/24 H26.9 Elevated BP without diagnosis of hypertension Acute ~04/2024 R03.0 Patellar tendonitis of right knee Acute M76.51 Osteoarthritis of right knee Acute ~04/2023 M17.11 BMI 34.0-34.9,adult Acute Z68.34 Diabetes mellitus type 2 in obese Chronic ~03/05/21 E11.69, E66.9 Hyperlipidemia Chronic ~05/2021 E78.5 Medical History Medical History Auditory complaints of right ear Ear pain, right Status post hysteroscopy Hysteroscopy, dilation, curettage. Removal of endocervical polyp and endometrial polyp 06/22/2022 Fibroid, uterine (~04/2021) Menorrhagia (~03/2021) Perimenopausal; pelvic U/S 03/2021-->fibroid Prediabetes A1C 6.1% 2015 Surgical History Surgical History Status post total abdominal hysterectomy (~07/2022) Diagnostic laparoscopy followed by total abdominal hysterectomy with bilateral salpingectomy due to markedly enlarged fibroid uterus. H/O dilation and curettage H/O tubal ligation (~1999) Tobacco Smoking/Tobacco Use Status: Never Passive smoking exposure: No Second hand exposure: No Alcohol Alcohol Intake: current Alcohol intake frequency: holidays/special occasions only Substance Use Substance use: Never Substance use type: does not use Vital Signs and Lab Results Vital Signs Most Recent Vital Signs in EMR: Most Recent Vital Signs Temp Pulse Resp BP Pulse Ox 36.9 C 58 L 20 161/101 H 99 07/01/25 10:04 07/01/25 10:04 07/01/25 10:04 07/01/25 10:04 07/01/25 10:04 Point of Care Results Point of Care Results: Finger Stick Blood Glucose 100 07/01/25 10:20 Lab Results Complete Blood Count: WBC, (4.4-10.8) 8.43 10^3/uL 06/23/25, 14:00 RBC, (3.93-5.22) 4.76 10^6/uL 06/23/25, 14:00 Hgb, (11.2-15.7) 14.4 g/dL 06/23/25, 14:00 Hct, (36.0-46.0) 40.4 % 06/23/25, 14:00 Plt Count, (130-400) 222 10^3/uL 06/23/25, 14:00 Complete Metabolic Panel: Sodium, (136-145) 142 mmol/L 06/23/25, 14:00 Potassium, (3.5-5.1) 3.7 mmol/L 06/23/25, 14:00 Chloride, (98-107) 103 mmol/L 06/23/25, 14:00 Carbon Dioxide, (21.0-32.0) 29.9 mmol/L 06/23/25, 14:00 BUN, (7-18) 16 mg/dL 06/23/25, 14:00 Creatinine, (0.55-1.02) 1.1 mg/dL H 06/23/25, 14:00 Est GFR (CKD-EPI 2020), (mL/min/1.73m2) 60.46 06/23/25, 14:00 Calcium, (8.5-10.1) 9.3 mg/dL 06/23/25, 14:00 Glucose, (74-106) 118 mg/dL H 06/23/25, 14:00 Anesthesia Assessment and Plan Anesthesia History Personal History: No History of Anesthesia Complications Family History: No Family History of Anesthesia Complications Exercise Tolerance Exercise Tolerance: Metabolic Equivalents>4 Cardiac & Pulmonary Exam Cardiac Exam: Normal S1/S2 Heart Sounds Pulmonary Exam: Clear Bilateral Breath Sounds Implantable Cardiac Device Does patient have a Pacemaker or an ICD?: No Airway Exam Known Difficult Airway: No Mallampati Class: 2 Mouth Opening: Normal (> 3cm) Thyromental Distance: Greater than 3 cm Neck Range of Motion: Full ROM Neck Circumference: Normal Teeth Condition: Normal Dentition ASA Classification ASA Score: ASA 3 Emergency Case?: No NPO Status NPO Status: NPO Clears >2 hours, Solids >8 hours Status Status: History of Hysterectomy Anesthesia Plan Resuscitation Status: Full Code Anesthesia Technique: Spinal Anesthesia Airway Planned: Natural Airway Pain Management: Surgeon and patient request nerve block Monitors Used: Standard Monitors Preoperative Comments:: 50 yo for TKA. Sig PMHx: HTN (no meds), elevated BMI, DM2 (Tresiba, semaglutide). Never smoker, occ EtOH. Previous Anes: - hysterectomy, no IT due to difficult spinal, glide 3 grade 1, masked with OPA. Discussed spinal vs general, and that we didn't get her spinal the last time. Plan for pre spinal US, single attempt, convert to GA if difficulty.
--- NOTE | 2025-07-01 12:39 | W.ANESNERVE ---
Nerve Block Single Injection Procedure Date and Time Date Performed: 07/01/25 Procedure Start: 12:21 Location Where Procedure Performed Procedure Location: Day Surgery Unit Reason Performed: Postoperative Analgesia Requesting Provider: Khoa Johns Timeout Performed Timeout Performed: Yes Monitoring Used ECG, Blood Pressure and SpO2 Sterility Sterility: Hand Hygiene, Surgical Cap, Surgical Mask, Sterile Gloves and Chlorhexidine Sedation Given During Procedure Sedation Given (Indicate Dose Given): Versed IV Dose:: 2 mg Patient Mental Status Patient Mental Status: Sedate with meaningful communication Nerve Block 1st Nerve Block: Laterality: Left Block Type: Adductor Canal Ultrasound Image Saved?: Yes Needle / Catheter Used: 120mm SonoPlex II Local Anesthetic Bolus (Indicate Dose Given): Lidocaine used for local infiltration of skin and Bupivacaine 0.25% Dose:: 12 mL Additives (Indicate Dose Given): None Ultrasound: Sterile probe cover and gel used Nerve Stimulator: Supplement to Ultrasound use and No twitch or parasthesia noted < 0.5 mA (<0.8 mA) Paresthesia: None Procedure Tolerated: No Complications Procedure Outcome: Successful Performed By: Jacob Parsons
[2025-07-01] MEDS: ceFAZolin 2 GM/50 ML BAG IVPB (13:08)
[2025-07-01] MEDS: TRANEXAMIC ACID/SOD. CHL. 1,000 MG/100 ML BAG 600 MG IVPB (13:11)
[2025-07-01] MEDS: EPINEPHrine 1 MG/ML AMP pres-free (13:30)
[2025-07-01] MEDS: Ketorolac 30 MG/ML VIAL (13:31)
[2025-07-01] MEDS: ROPIvacaine 0.2% 200 MG/100 ML BAG (13:31)
--- NOTE | 2025-07-01 14:10 | ROE_ITS ---
Operative Note Operative Note PRE-OP DIAGNOSIS: Left Knee Osteoarthritis POST-OP DIAGNOSIS: same PROCEDURE: Left Total Knee Replacement SURGEON: Khoa Johns PROMOTION MANAGER: Jessica Wu ANESTHESIA TYPE: Spinal Refer to Anesthesia Record ESTIMATED BLOOD LOSS: 100 PATHOLOGY: none sent TOURNIQUET TIME: 0 COMPLICATIONS: None Patient was transported to: PACU Patient's condition: stable Implants: 1. Depuy Attune Cementless Cruciate Retaining Femoral Component, Size 4 2. Depuy Attune Cementless Fixed Bearing Tibial Component, Size 4 3. Depuy Attune 4x5mm CR/FB Poly Indications: I have seen Avis in clinic for symptoms of knee arthritis, confirmed with radiographic findings. Avis has exhausted nonoperative methods and was having significant limitations in daily function and desired better function and less pain. I discussed the technical details of a knee replacement. I explained the risks of the procedure to include, but not limited to, bleeding, infection, pain, stiffness, fracture, damage to nerves and vessels, damage to muscles and tendons, loosening, need for repeat procedure, blood clot and cardiopulmonary demise. Despite these risks, she elected to proceed. Findings: There was significant signs of arthritis throughout the knee. Procedure Description: Avis was greeted in the preoperative holding area where the correct side was identified and marked. The consent was reviewed with the patient and signed. The history and physical was updated. All questions were answered. Preoperative medications were administered: Acetaminophen 1000mg, Celebrex 400mg, and Gabapentin 300mg. An adductor canal block was then administered by the anesthesia team in the DSU. Avis was taken back to the operating room. A spinal anesthestic was then administered. The patient was placed into the supine position on the operating room table. Posts were placed for positioning during the procedure. All bony prominences were well padded. Prophylactic antibiotics in the form of Cefazolin were administered. 1g of Tranxemic Acid was given intravenously within 30 minutes of incision. The left leg was then prepped with Chloraprep and draped in a standard fashion with impervious stockinette. A second prep with Chloraprep was performed prior to application of Iodine impregnated skin protection. A timeout to confirm correct identity, side and site, procedure, allergies, anesthesia, and medical concerns was performed. With the knee in some flexion, a midline incision was made overlying the knee. Full thickness skin flaps were raised once the extensor mechanism was encountered. These were raised medially and laterally. Any bleeding was controlled with electrocautery. Once the extensor mechanism was fully exposed, a medial parapatellar arthrotomy was performed in a flexed position. All bleeding from the arthrotomy and the geniculate arteries was coagulated. A medial subperiosteal peel was performed with electrocautery to the midcoronal plane. The fat pad was removed while keeping the patellar tendon protected. The anterior distal femur synovium was removed for later visualization. The ACL and PCL were resected and the anterior horn of the lateral meniscus was transected. The knee was then flexed with the patella everted. Large osteophytes from the tibia were removed. Large osteophytes from the femur were removed. There was notable synovitis. Using a step drill, and based on preoperative templating, the femoral canal was entered. This was done with a step drill without any difficulty. The intramedullary distal femoral cut guide was inserted, set to a 6 degree valgus cut and 9mm cut thickness. The distal femoral cut guide was then held in position and pinned. With the soft tissues protected, the distal cut was performed. This was passed over a few times to ensure a planar cut. I then turned attention to the tibia. The extramedullary guide was placed onto the leg. The distal aspect was slid medial to adjust for position of center of ankle and stay in line with shaft of the tibia. Approximately 5 degrees of posterior slope was kept in the proximal cutting guide. The center of the guide was aligned with the PCL. The stylus was used to assess cut thickness. The medial side, most involved side, was set for a 4mm cut. This was then held in position and pinned into place with 2 additional pins and a cross pin for stability. The medial and lateral collateral ligaments were protected and the cut was performed. With this completed, it was assessed and noted to be of appropriate dimensions. The guide was removed. A spacer block was inserted and the knee was brought into extension. The 5mm spacer block provided full extension, without hyperextension and with stability of both the medial and lateral collateral ligaments was assessed. The pins from the femur and the tibia were then removed. The distal femur was then sized. The anterior stylus was placed onto the lateral ridge of the anterior femur. This indicated a size 4 femur. The external rotation of the guide was adjusted to 0 degrees to match the epicondylar axis, perpendicular to Aide?s line. The 4-in-1 cutting guide was the placed. The posterior medial femur cut was evaluated and appeared of good thickness. The spacer block was inserted underneath the cutting guide and stability was confirmed in 90 degrees of flexion. An abelardo wing was used to confirm appropriate position of the anterior cut to avoid notching. This cutting guide was ensured to be flush on the cut surface and then pinned into place with headed pins. While protecting the soft tissues, quad tendon, and collateral ligaments, the anterior and posterior cuts were performed with a saw. The central two pins were removed and the posterior and anterior chamfers were cut next. The notch-cutting guide was placed. This was pinned to lateralize the femoral component as much as possible while keeping it flush on the cut surface. This was then pinned into position. A reciprocating saw was used to make the notch cut. A rasp smoothed the cut surfaces. The medial and lateral menisci were removed. A trial femoral component was then inserted, impacted down to the cut surfaces, and the lug holes were drilled. A provisional trial tibial component was placed and the knee was brought through range of motion. There was noted to be excellent extension and flexion. There was no significant instability. The patella was tracking without thumbs. A size 5mm polyethylene component provided the best range of motion and stability with less than 2mm gapping with medial and lateral stress and full extension without significant hyperextension. The tibial cut surface was fully exposed. The tibia was then sized as a 4. The tibia had been previously marked during trialing to correspond to the center of the tibial component to help with rotation. The trial was aligned to this petey, approximately rotated to the medial 1/3rd of the tibial tubercle. The trial was pinned into place. The tibia was prepared with a reamer and a keel punch and lug holes. The trial components were removed. The final components were opened on the back table. The periosteal and capsular tissues, especially posteriorly, around the knee were then systematically injected with a periarticular cocktail consisting of 246mg of Ropivacaine, 0.5mg of Epinephrine, 0.08mg of Clonidine, and 30mg of Ketorolac, diluted to 100cc. On the back table, with the implants opened. The cementless knee components were placed. Starting with the tibial component, the tibia was subluxed anteriorly and the lug holes of the component were lined up. The tibia was then impacted with an impactor and mallet until the tibial component was in contact with the tibia. Then, the femoral component was inserted. The lug holes were aligned and the component was impacted into position. The final polyethylene component was inserted. The knee was irrigated with Surgiphor Betadine solution. This was allowed to sit in the knee for 3 minutes and then it was irrigated out with saline. The patella was tracking with a no-thumbs technique. A complete synovectomy was performed around the periphery of the patella. A lateral facetectomy was also performed. The capsule was then reapproximated with a No. 1 Vicryl at multiple locations. The capsule was finally closed with a No. 2 Stratafix, barbed suture. Deep tissues were then reapproximated with 0 Vicryl and 2-0 Vicryl. The skin was closed with a running 3-0 Monocryl in a subcuticular fashion. This was reinforced with skin glue. A Mepilex silver dressing was applied along with a [id number] JERONIMO wrap. A CryoCuff was applied. Avis was transferred to the hospital bed without difficulty an suffering no apparent complication. She has a good prognosis. Physical therapy will start today and without restrictions, weight-bearing as tolerated. Aspirin 81mg BID will be used for DVT prophylaxis. Date of Procedure: 07/01/25
--- NOTE | 2025-07-01 14:47 | W.ANESPOSTOP ---
Postoperative Evaluation Date, Time and Location Date Performed: 07/01/25 Time Performed: 14:47 Patient Location: PACU Vital Signs Most Recent Imported Vital Signs: Most Recent Vital Signs Temp Pulse Resp BP Pulse Ox 36.5 C 61 16 151/84 H 98 07/01/25 12:06 07/01/25 12:06 07/01/25 12:06 07/01/25 12:06 07/01/25 12:06 Pain Score Most Recent Pain Score: Most Recent Pain Score Pain Level 8 07/01/25 12:06 Assessment Mental Status: Awake (Alert & Oriented to Patient Baseline) Airway and Respiratory Function: Patent airway with normal (patient baseline) respiratory exam Cardiovascular Function: Hemodynamically Stable Hydration Status: Adequately Hydrated Nausea & Vomiting: No Nausea or Vomiting Pain: Pain is tolerable per patient Peripheral Nerve Block: Regional nerve block not resolved at time of post operative discharge
[2025-07-01] MEDS: HYDROmorphone 2 MG/ML SYR IVP ×2 (14:55→15:05)
[2025-07-01] MEDS: Tranexamic Acid 650 MG TAB 1300 MG PO (15:42)
--- NOTE | 2025-07-01 17:37 | PT.INIE ---
PT Notes Visit Reasons: Left knee DJD Physical Therapy Day Surgery Initial Evaluation Date: 07/01/2025 Referring Doctor: Jessica Wu NP/ Dr Johns PT Orders: PT CONSULT: Status post Ortho surgery Precautions: WBAT left LE Patient Profile/Admitting Diagnosis: Patient is a 50-year-old female presenting status post elective left TKA by Dr. Johns on 07/01/2025. Postop uncomplicated PMHX: Cortical cataract (Acute 11/15/24) Arthritis of left knee (Acute) DEPO MEDROL 03/27/25Elevated BP without diagnosis of hypertension (Acute ~04/2024) Patellar tendonitis of right knee (Acute) Osteoarthritis of right knee (Acute ~04/2023) DEPO MEDROL 03/27/25BMI 34.0-34.9,adult (Acute) Diabetes mellitus type 2 in obese (Chronic ~03/05/21) A1C 11.5% 03/05/2021-->diagnosisHyperlipidemia (Chronic ~05/2021) 05/24/2021 initiated statin Medical History Auditory complaints of right ear Ear pain, right Status post hysteroscopy Hysteroscopy, dilation, curettage. Removal of endocervical polyp and endometrial polyp 06/22/2022Fibroid, uterine (~04/2021) Menorrhagia (~03/2021) Perimenopausal; pelvic U/S 03/2021-->fibroid Prediabetes A1C 6.1% 2015 Surgical History Status post total abdominal hysterectomy (~07/2022) Diagnostic laparoscopy followed by total abdominal hysterectomy with bilateral salpingectomy due to markedly enlarged fibroid uterus.H/O dilation and curettage H/O tubal ligation (~1999) Social History/Home Situation: Patient resides with single-family home 3 steps to enter with bilateral rails. Patient independent without device for ambulation, independent home management, independent ADLs shopping groceries meal prep Equipment Owned/DME: Patient fitted for FWW Subjective: Patient reports she feels good and is looking forward to getting back on her feet without pain Objective: [] General Observation: Patient presented seated fully dressed with present in room Mental Status: Alert and oriented x 4, cooperative, able to follow instructions, agreeable to participate in eval Pain: Left knee 11/18 after medication ROM: [] Right Upper Extremity: WFL Left Upper Extremity: WFL Right Lower Extremity: WFL Left Lower Extremity: Hip and ankle within normal limits, knee 0 to 92 degrees Strength: [] Right Upper Extremity: 5/5 Left Upper Extremity: 5/5 Right Lower Extremity: 5/5 Left Lower Extremity:Hip flexion: 3 -/5; hip abduction: 3 -/5; hip extension: 3-/5; knee extension: 3/5; knee flexion: 2+/5 ankle DF: 3/5 ; ankle PF: 3/5; patient demonstrates strong quad set and able to perform SLR within shortened range without lag Sensation: Intact Bed Mobility/Transfers: [] Supine to sit SBA Sit to stand SBA Stand to sit SBA Bed to chair SBA with FWW Gait: Ambulated with FWW SBA 150 feet including turns and obstacle management. Demonstrating decreased left knee flexion during swing phase, impaired step length Stairs: 3 4 steps? and 2 6 steps with rails SBA with continuous cues for sequencing step to pattern Balance: [] Static Sitting: Normal Dynamic Sitting: Good Static Standing: Good with FWW Dynamic Standing: Fair plus with FWW Special Tests: [] Mobility Limitations Standardized Measure [] [facility] AM-PAC 6 clicks Basic Mobility Inpatient Short Form: [] Raw Score: 23 CMS Score: 11.20% Informed Consent/Education: Patient instructed in purpose of PT consult. [id number] packet containing TKA exercise protocol has been given to patient. Education and training on initial set of 5 reps exercises that can be done at home have been completed with patient. Assessment: Patient is a 50-year-old female who presents with clinical signs and symptoms consistent with current/admitting diagnoses that have resulted to mobility limitations, gait instability, generalized weakness, and impairment of motor control as demonstrated by the following impairment level findings: 1. Decreased strength to left knee major muscle groups 2. Impaired standing balance 3. Limitation of joint range of motion in left knee 4. Pain in left knee 5. Impaired functional activity tolerance Impairments are contributing to the following functional limitations: 1. Inability to safely ambulate without assistive device 2. Increase completion time for mobility ADL performance 3. Increased fall risk 4. Difficulty performing stairs without assistance Patient is assessed as a low complexity based on the following: History: 50-year-old female with impairment level findings, functional limitations, and past medical history as indicated above Examination: Demonstrable impairment in strength, balance, and mobility level with underlying impairments and functional limitations as documented above Presentation: Stable Decision Making: Low Goals: N/A. PT evaluation and 1-2 treatment sessions only for functional mobility training using recommended AD and for HEP instruction. Plan of Care/Treatment Plan: N/A. PT evaluation and 1-2 treatment session only for functional mobility training using recommended AD and for HEP instruction. DISCHARGE RECOMMENDATIONS: Home with HEP and outpatient PT as scheduled TREATMENT CODE/TIME: 22882, 13051/4:05pm-4:35pm Thank you for the opportunity to participate in the care of this patient. Francesca Jordan [facility]
== END 2025-07-01 17:07 | disposition home or self-care (01) ==
LOC: SUR 09:50
PROVIDERS: PCP Nurse Practitioner Adult Health; Visit Provider Student in an Organized Health Care Education/Training Program
PROC: (CPT 27447; principal; 2025-07-01 12:45)
DX: M17.12 Unilateral primary osteoarthritis, left knee (principal); I10 Essential (primary) hypertension; E11.9 Type 2 diabetes mellitus without complications
CPT/HCPCS: 27447; 64447; 97110; 97161; C1776; J0166; J0665; J0690; J1100; J1171; J1885; J1920; J2250; J2371; J2401; J2405; J2704; J2795; J3010

== ENCOUNTER 2025-07-14 11:28 | Outpatient (CLI) | payer BC, SELFPAY ==
--- NOTE | 2025-07-14 11:00 | DI.RAD_ITS ---
Exam(s) XR KNEE LT 1V XR STANDING ALIGNMENT EXAM: XR STANDING ALIGNMENT and XR knee LT 1 V CLINICAL HISTORY: 1ST POST OP S/P L TKA. TECHNIQUE: 2D digital imaging was performed. Five images were obtained. COMPARISON: CR XR KNEE LT 3V AP,LAT,SCOTTY from 12/26/2024 CR XR STANDING ALIGNMENT from 03/27/2025 FINDINGS: BONES: The hips are well maintained. Since the prior examination, the patient has undergone a left total knee arthroplasty. The orthopedic hardware appears in good position. There are no suspicious lucencies around the hardware. There are marked degenerative changes in the right knee characterized by joint space narrowing and osteophytes. The findings are most marked in the medial femoral tibial joint. The ankles are well maintained.There is no significant leg length discrepancy. SOFT TISSUE: Normal. IMPRESSION: 1. Interval placement of a left total knee arthroplasty. 2. Marked degenerative changes of the right knee. DATA REPOSITORY: RADIATION DOSE DELIVERED:
== END 2025-07-14 11:29 | disposition home or self-care (01) ==
LOC: DIORS 11:28
PROVIDERS: PCP Nurse Practitioner Adult Health; Visit Provider Student in an Organized Health Care Education/Training Program
DX: Z96.652 Presence of left artificial knee joint (principal); M17.11 Unilateral primary osteoarthritis, right knee
CPT/HCPCS: 73560; 77073